=== PATIENT | female | born 1975 | race Caucasian/White ===

== ENCOUNTER 2020-07-16 10:45 | Outpatient (CLI) | payer MEDICAID, SELFPAY ==
--- NOTE | 2020-07-16 10:51 | MM_ITS ---
WS: [id number] BILATERAL SCREENING DIGITAL MAMMOGRAM WITH CAD HISTORY: SCREENING COMPARISON: 11/04/2011 Bilateral CC and MLO views submitted. Computer aided detection analyzed. Breast composition: There are scattered areas of fibroglandular density. No suspicious masses, microc alcifications or architectural distortion. MM/[id number] IMPRESSION: BI-RADS: 1-Negative FOLLOW UP: 1 Year Follow-up
== END 2020-07-16 10:46 | disposition home or self-care (01) ==
LOC: RADSHAW 10:50
PROVIDERS: PCP Nurse Practitioner Family; Visit Provider Nurse Practitioner Family
DX: Z12.31 Encounter for screening mammogram for malignant neoplasm of breast (principal)
CPT/HCPCS: 77067

== ENCOUNTER 2022-09-03 11:07 | Outpatient (CLI) | payer MEDICAID, SELFPAY ==
--- NOTE | 2022-09-03 12:06 | MM_ITS ---
WS: [id number] BILATERAL 3D TOMOSYNTHESIS DIGITAL SCREENING MAMMOGRAPHY WITH CAD CLINICAL INFORMATION: SCREENING HISTORY: Screening mammogram. No current complaints. COMPARISON: 2020 TECHNIQUE: Bilateral CC and MLO views. FINDINGS: Scattered fibroglandular densities bilaterally. No suspicious focal mass, asymmetry, calcifications, or architectural distortion. No evidence of malignancy. Lucent centered calcifications. MM/[id number] IMPRESSION: BI-RADS: 2-Benign FOLLOW UP: 1 Year Follow-up Recommend return to annual screening mammography.
== END 2022-09-03 11:08 | disposition home or self-care (01) ==
LOC: RAD 11:11 → MOBLMAM 11:18 → RAD 12:04
PROVIDERS: PCP Nurse Practitioner Family; Visit Provider Family Medicine
DX: Z12.31 Encounter for screening mammogram for malignant neoplasm of breast (principal)
CPT/HCPCS: 77063; 77067

== ENCOUNTER 2022-11-07 23:44 | Emergency (ER) | payer MEDICAID, SELFPAY ==
--- NOTE | 2022-11-07 23:47 | W.ED.FEMALGU ---
HPI - Female Genitourinary General: Chief complaint: Skin/Abscess/Foreign Body Stated complaint: possible UTI Time Seen by Provider: 11/07/22 23:47 History of Present Illness: Patient comes in with a persistent rash to the inguinal area. Patient has had multiple treatments for it think it continues to persist. Patient at this time is using nystatin powder and Diflucan for the treatment. Patient appears nontoxic. Patient appears no acute distress. Review of Systems General: Reports: 10 or more systems reviewed and unremarkable except in HPI and below Skin/Breast: Reports: non-healing lesions Physical Exam Const: COMMON NORMALS: alert HENMT: COMMON NORMALS: normocephalic HEAD & SCALP: normocephalic Neck/C-Spine: COMMON NORMALS: full ROM Resp: COMMON NORMALS: normal respiratory effort Cardio: COMMON NORMALS: regular rate RATE: regular rate : OTHER: DogNormal external female emanation. Patient does have some erythema and some cracking of the skin in the inguinal folds. Extremity: COMMON NORMALS: normal to inspection Neuro: SENSORIUM/ORIENTATION: Yes alert Skin: RASHES: rashes noted (Inguinal bilateral areas) Course Vital Signs: Vital signs: Vital Signs Temperature 98.8 F 11/08/22 00:31 Pulse Rate 95 11/08/22 00:31 Respiratory Rate 18 11/08/22 00:31 Blood Pressure 175/103 11/08/22 00:31 Pulse Oximetry 97 11/08/22 00:31 MDM - Female Medical Decision Making Patient appears nontoxic. Patient has some tenderness to the groin. On exam we note a erythematous rash with some maceration of the skin to the inguinal folds bilaterally. Differential diagnosis includes not limited to intertrigo, erythrasma, seborrheic dermatitis, eczema. Recommended patient switch from nystatin to clotrimazole. Instructed to clean with mild soap and water and dry thoroughly twice a day and then apply clotrimazole cream. Prescription for hydrocortisone with pramoxine cream to be used as needed for discomfort. Recommended patient continue with Diflucan as prescribed. Recommend follow-up with primary care in 1 week for recheck. Discussed possibility of patient needing referral to dermatology for further evaluation. Patient stated understanding and agreed to plan. No radiology studies performed this visit Discharge Plan Discharge Patient Disposition: Home Clinical Impression: Intertrigo Condition: Stable Prescriptions: New clotrimazole 1 % cream 1 applic topical BID 56 Days Qty: 30 2RF hydrocortisone-pramoxine 1-1 % cream 1 applic topical TID PRN (Reason: skin irritation) Qty: 57 0RF Rx Instructions: allow at least 3 hours between applications No Action hydrochlorothiazide 25 mg tablet 25 mg PO DAILY cetirizine [Zyrtec] 10 mg tablet 10 mg PO DAILY Qty: 30 0RF fluticasone propionate [Flonase Allergy Relief] 50 mcg/actuation spray,suspension 2 spray intranasal DAILY Qty: 16 0RF Rx Instructions: administer into each nostril dextromethorphan-guaifenesin 20-400 mg tablet 1 tab PO QID PRN (Reason: cough) Qty: 30 0RF Discharge Orders: Discharge ED (Routine); Ordered 11/08/22 Ordered By: Joe Cai Referrals: Kayley Campos FNP [Referring] - Discharge Diet: Usual diet Discharge Activity: Increase activity as tolerated Patient Instructions: Skin Yeast Infection (ED), Dermatitis (ED) Activity Restrictions/Additional Instructions: Clean area with mild soap and water. Dry area thoroughly with a language and literature division chair on a cool setting. Then apply clotrimazole cream. Do this twice a day. Try to keep yourself cool and dry as much as possible. Use the hydrocortisone?pramoxine cream as needed for skin irritation such as pain or itching. Do not use nystatin powder or other creams at this time. You may continue with your oral Diflucan as prescribed. Follow-up with primary care in 1 week. If symptoms have not improved at that time you may need to have a referral to dermatology. Coding Level of Care Code ED Corporate Safety Manager for Lisa Louis
[2022-11-07 23:51] VITALS: BP 175/103; PULSE 95; RESP 18; TEMP 37.1; O2SAT 97; BMI 47.5
[2022-11-08 00:31] VITALS: BP 175/103; PULSE 95; RESP 18; TEMP 37.1; O2SAT 97
== END 2022-11-08 00:31 | disposition home or self-care (01) ==
PROVIDERS: Emergency Provider Nurse Practitioner Family; PCP Family Medicine
DX: L30.4 Erythema intertrigo (principal)
CPT/HCPCS: 99283

== ENCOUNTER → 2023-06-27 08:43 | Outpatient (BNVA) | payer MEDICAID, SELFPAY | PROVIDERS: PCP Family Medicine; Visit Provider Nurse Practitioner Family | DX: L30.4 Erythema intertrigo (principal); L91.8 Other hypertrophic disorders of the skin; L85.8 Other specified epidermal thickening; L57.8 Other skin changes due to chronic exposure to nonionizing radiation | CPT/HCPCS: 17110; 99203 ==

== ENCOUNTER → 2023-07-25 13:51 | Outpatient (BNVA) | payer MEDICAID, SELFPAY | PROVIDERS: PCP Family Medicine; Visit Provider Nurse Practitioner Family | DX: L30.4 Erythema intertrigo (principal); L57.0 Actinic keratosis; L57.8 Other skin changes due to chronic exposure to nonionizing radiation; H02.60 Xanthelasma of unspecified eye, unspecified eyelid | CPT/HCPCS: 17000; 99214 ==

== ENCOUNTER 2024-05-20 20:51 | Emergency (ER) | payer MEDICAID, SELFPAY ==
[2024-05-20 21:03] VITALS: BMI 39.3
[2024-05-20 21:07] VITALS: BP 133/71; PULSE 71; RESP 18; TEMP 37.2; O2SAT 93
--- NOTE | 2024-05-20 23:40 | ECG_ITS ---
[facility] Date: 2024-05-20 Pat Name: Kelsey Zacarias Department: Room: Gender: Female Mailroom Coordinator: : 1975 Requested By: Anshu Mota Order Number: [id number] Mancuso MD: Leah Astudillo M.D. Measurements Intervals Jet Rate: 64 P: 149 TX: 126 QRS: 145 QRSD: 97 T: 151 QT: 385 QTc: 399 Interpretive Statements SINUS RHYTHM ARM LEADS REVERSED [INVERTED P AND QRS IN I] No previous ECG available for comparison Electronically Signed On 05-21-2024 21:40:11 CDT by Leah Astudillo M.D. [email or web address]
[2024-05-20 23:44] LABS: Basophils # 0.1 10^3/uL (0.0-0.1); Basophils % 0.5 %; Eosinophils # 0.3 10^3/uL (0.0-0.8); Eosinophils % 2.6 %; Hematocrit 45.1 % (36-47); Lymphocytes # 2.9 10^3/uL (0.8-4.8); Lymphocytes % 26.7 %; Mean Corpuscular HGB Conc 32.6 g/dL (30-55); Mean Corpuscular Volume 98.3 fl (85-98); Mean Platelet Volume 10.1 fL (7.4-10.4); Monocytes # 0.9 10^3/uL (0.2-0.9); Monocytes % 7.8 %; Neutrophils # 6.73 10^3/uL (1.8-7.7); Nucleated Red Blood Cells % 0 %; Platelet Count 240 10^3/cmm (157-399); Red Blood Count 4.59 10^6/uL (3.85-5.65); Red Cell Distribution Width 13.3 % (12.1-15.1); White Blood Count 10.84 10^3/uL (3.29-11.43)
[2024-05-20 23:52] VITALS: BP 132/54; BP 138/85; BP 148/79; PULSE 76; PULSE 83; PULSE 89
[2024-05-21 00:09] LABS: Alanine Aminotransferase 46 U/L (0-33); Alkaline Phosphatase 76 U/L (35-105); Anion Gap 12.5 (5-19); Aspartate Amino Transferase 24 U/L (0-32); Blood Urea Nitrogen 7 mg/dL (6-20); Calcium 10.1 mg/dL (8.5-10.5); Carbon Dioxide 29 mmol/L (22-29); Chloride 105 mmol/L (98-107); Creatinine Clr Calc Pharmacy 146.7712; Globulin 3.3 g/dL (1.3-4.6); Glomerular Filtration Rate 130.6 mL/min (90-130); Glucose 99 mg/dL (65-115); Osmolality Calculated 294 mOsm/kg (285-295); Potassium 3.5 mmol/L (3.5-5.1); Sodium 143 mmol/L (136-145); Total Bilirubin 0.3 mg/dL (0.15-1.2); Total Protein 7.3 g/dL (6.6-8.7)
--- NOTE | 2024-05-21 00:09 | W.ED.DIZZY ---
Documented by User: MARIE Luz 05/21/24 01:07 HPI - Dizziness General: Chief Complaint: Dizziness Stated Complaint: light head dizzy Time Seen by Provider: 05/20/24 21:15 Source: patient Mode of arrival: ambulatory Limitations: no limitations History of Present Illness: HPI Narrative: Patient is a 49-year-old female presenting to the emergency department complaining of dizziness onset today. States that she was cleaning her house and afterwards started to feel lightheaded and off balance that she was going to fall. States that she has the sense of vertigo and that the room was spinning. Also notes some nausea. No other symptoms noted at this time. Denies known history of vertigo and states that she has never tried taking meclizine or other aoms-eri-zxizllv medications. No injuries associated with her falls. Does not report any pertinent past medical history other than high blood pressure. No recent medication changes. MD elicited complaint: dizziness and disequilibrium Onset (ago): hour(s) Timing: sudden onset Severity: mild Description: off-balance History of similar symptoms: Yes Exacerbating factors: movement/ambulation Relieving factors: remaining still Associated symptoms: Reports nausea; Denies chest pain, chills, headache(s), palpitations or vomiting Associated neuro symptoms: Deny numbness in extremities Related Data Home Medications ?Medication ?Instructions ?Recorded ?Confirmed hydrochlorothiazide 25 mg tablet 25 mg PO DAILY 08/10/22 03/16/23 Previous Rx's ?Medication ?Instructions ?Recorded cetirizine 10 mg tablet (Zyrtec) 10 mg PO DAILY #30 tabs 08/10/22 fluticasone propionate 50 2 spray intranasal DAILY #16 grams 08/10/22 mcg/actuation nasal spray,suspension (Flonase Allergy Relief) clotrimazole 1 % topical cream 1 applic topical BID 8 weeks #30 02/17/23 grams fluconazole 150 mg tablet 150 mg PO Q3D #3 tabs 02/17/23 hydrocortisone 2.5 % topical 1 applic topical BID #453.6 grams 02/17/23 ointment nystatin 100,000 unit/gram topical 1 applic topical DAILY #60 grams 02/17/23 powder Allergies Allergy/AdvReac Type Severity Reaction Status Date / Time No Known Allergies Allergy Verified 03/16/23 09:58 Review of Systems General: Reports: 10 or more systems reviewed and unremarkable except in HPI and below Const: Denies: fever(s), chills or fatigue Eyes: Denies: change in vision ENMT: Denies: throat pain, ear or mastoid pain or nasal discharge Card: Denies: chest pain, palpitations, swelling of feet/ankles or lightheadedness Resp: Denies: dyspnea, productive cough or wheezing GI: Reports: nausea; Denies: abdominal pain, vomiting, diarrhea or constipation Musc: Denies: neck pain, back pain or joint pain Skin/Breast: Denies: rash Neuro: Reports: dizziness and vertigo; Denies: headache(s), numbness in extremities or weakness in extremities PFSH ED PFSH: Family History Denies family history of Ovarian cancer Diabetes Breast cancer Hypertension Uterine cancer Thyroid disease Stroke Female Reproductive History: Date of last menstrual period: 05/08/24 Physical Exam Const: COMMON NORMALS: no acute distress, patient oriented x3 and no limitations GENERAL APPEARANCE: cooperative, comfortable and well developed ORIENTATION/CONSCIOUSNESS: Yes awake, Yes oriented to person, Yes oriented to place and Yes oriented to time HENMT: COMMON NORMALS: normocephalic, atraumatic and hearing grossly normal bilaterally HEAD & SCALP: normocephalic and atraumatic Eye: COMMON NORMALS: Equal, round and reactive pupils present, EOMs intact bilaterally and conjunctivae normal CONJUNCTIVA: Yes conjunctivae normal PUPIL: Yes Equal, round and reactive pupils present Neck/C-Spine: COMMON NORMALS: full ROM, supple and no JVD Resp: COMMON NORMALS: normal respiratory effort, No retractions, No use of accessory muscles and clear to auscultation bilaterally AUSCULTATION: clear to auscultation bilaterally Cardio: COMMON NORMALS: no JVD, regular rate, regular rhythm, No clicks present (Cardio), No murmurs present (Cardio) and No rub (Cardio) RATE: regular rate RHYTHM: regular rhythm GI: COMMON NORMALS: Normal to inspection, nondistended, normoactive bowel sounds present, Soft to palpation and non-tender AUSCULTATION: Yes normoactive bowel sounds PALPATION: Yes Soft to palpation RECTAL EXAM: deferred Extremity: COMMON NORMALS: normal to inspection, full ROM and capillary refill normal Neuro: COMMON NORMALS: patient oriented x3, moves all extremities, no focal motor deficits and no sensory deficits noted SENSORIUM/ORIENTATION: Yes oriented to person, Yes oriented to place and Yes oriented to time Skin: COMMON NORMALS: no rashes or lesions noted GENERAL SKIN EXAM: no rashes or lesions noted Course Vital Signs: Vital signs: Vital Signs Temperature 98.9 F 05/20/24 21:07 Pulse Rate 76 05/20/24 23:52 Respiratory Rate 18 05/20/24 21:07 Blood Pressure 132/54 05/20/24 23:52 Pulse Oximetry 93 05/20/24 21:07 [facility] - Dizziness Medical Decision Making Patient presented for dizziness today, feeling like she was going to fall and room spinning sensation. History of blood pressure issues, states this has been controlled she has been taking her medications however does not regularly take her blood pressure. On exam there were no abnormalities, no neurological dysfunction. Vitals have been stable, orthostatic vital signs were unremarkable. Lab work was normal, urinalysis normal. EKG normal. Does report improvement after receiving meclizine here and I do suspect BPPV as source of her dizziness and nausea. Because of this we will have her take this vdlj-gny-jtdkfva and follow-up with regular doctor for any further complaints or issues. Lab Data 05/20/24 23:33 05/20/24 23:33 Laboratory Results WBC 10.84 10^3/uL (3.29-11.43) 05/20/24 23:33 RBC 4.59 10^6/uL (3.85-5.65) 05/20/24 23:33 Hgb 14.70 g/dL (11.27-16.99) 05/20/24 23:33 Hct 45.1 % (36-47) 05/20/24 23:33 MCV 98.3 fl (85-98) H 05/20/24 23:33 MCH 32.0 pg (27-33) 05/20/24 23: MCHC 32.6 g/dL (30-55) 05/20/24 23:33 RDW 13.3 % (12.1-15.1) 05/20/24 23:33 Plt Count 240 10^3/cmm (157-399) 05/20/24 23:33 MPV 10.1 fL (7.4-10.4) 05/20/24 23: Neut % (Auto) 62.0 % 05/20/24 23: Lymph % (Auto) 26.7 % 05/20/24 23: [place] % (Auto) 7.8 % 05/20/24 23: Eos % (Auto) 2.6 % 05/20/24 23: Baso % (Auto) 0.5 % 05/20/24 23: Neut # (Auto) 6.73 10^3/uL (1.8-7.7) 05/20/24 23: Lymph # (Auto) 2.9 10^3/uL (0.8-4.8) 05/20/24 23: [place] # (Auto) 0.9 10^3/uL (0.2-0.9) 05/20/24 23: Eos # (Auto) 0.3 10^3/uL (0.0-0.8) 05/20/24: Baso # (Auto) 0.1 10^3/uL (0.0-0.1) 05/20/24 23: Nucleated RBC % (auto) 0 % 05/20/24 23: Nucleated RBCs # 0.0 /100WBC 05/20/24 23:33 Sodium 143 mmol/L (136-145) 05/20/24 23: Potassium 3.5 mmol/L (3.5-5.1) 05/20/24 23: Chloride 105 mmol/L (98-107) 05/20/24 23: Carbon Dioxide 29 mmol/L (22-29) 05/20/24 23: Anion Gap 12.5 (5-19) 05/20/24 23:33 BUN 7 mg/dL (6-20) 05/20/24 23: Creatinine 0.5 mg/dL (0.5-0.9) 05/20/24 23: GFR Calculation 130.6 mL/min (90-130) H 05/20/24 23:33 Glucose 99 mg/dL (65-115) 05/20/24 23:33 Calculated Osmolality 294 mOsm/kg (285-295) 05/20/24 23: Calcium 10.1 mg/dL (8.5-10.5) 05/20/24 23:33 Total Bilirubin 0.3 mg/dL (0.15-1.2) 05/20/24 23:33 AST 24 U/L (0-32) 05/20/24 23:33 ALT 46 U/L (0-33) H 05/20/24 23:33 Alkaline Phosphatase 76 U/L (35-105) 05/20/24 23:33 Total Protein 7.3 g/dL (6.6-8.7) 05/20/24 23:33 Albumin 4.0 g/dL (3.5-5.2) 05/20/24 23:33 Globulin 3.3 g/dL (1.3-4.6) 05/20/24 23:33 Urine Color Yellow (Yellow) 05/21/24 00:20 Urine Appearance Cloudy (CLEAR) A 05/21/24 00:20 Urine pH 7 (5-7) 05/21/24 00:20 Ur Specific [place] 1.010 (1.005-1.030) 05/21/24 00:20 Urine Protein Neg (Negative) 05/21/24 00:20 Urine Glucose (UA) Norm (Normal) 05/21/24 00:20 Urine Ketones Negative (Negative) 05/21/24 00:20 Urine Blood Neg (Negative) 05/21/24 00:20 Urine Nitrate Negative (Negative) 05/21/24 00:20 Urine Bilirubin Neg (Negative) 05/21/24 00:20 Urine Urobilinogen Norm mg/dL (Negative) 05/21/24 00:20 Ur Leukocyte Esterase Negative (Negative) 05/21/24 00:20 Urine RBC 0-2 /hpf (0-2) 05/21/24 00:20 Urine WBC 0-5 /hpf (0-5) 05/21/24 00:20 Ur Squamous Epith Cells 0-5 /hpf (0-5) 05/21/24 00:20 Amorphous Sediment Not Reportable 05/21/24 00:20 Urine Bacteria None seen /hpf (NONE) 05/21/24 00:20 Hyaline Casts 0-4 /lpf H 05/21/24 00:20 No radiology studies performed this visit Discharge Plan Discharge Patient Disposition: Home Clinical Impression: Benign paroxysmal positional vertigo Qualifiers: Laterality: unspecified laterality Qualified Code(s): H81.10 - Benign paroxysmal vertigo, unspecified ear Condition: Stable Prescriptions: No Action hydrochlorothiazide 25 mg tablet 25 mg PO DAILY cetirizine [Zyrtec] 10 mg tablet 10 mg PO DAILY Qty: 30 0RF fluticasone propionate [Flonase Allergy Relief] 50 mcg/actuation spray,suspension 2 spray intranasal DAILY Qty: 16 0RF Rx Instructions: administer into each nostril clotrimazole 1 % cream 1 applic topical BID 56 Days Qty: 30 2RF hydrocortisone 2.5 % ointment 1 applic topical BID Qty: 453.6 1RF fluconazole 150 mg tablet 150 mg PO Q3D Qty: 3 0RF Rx Instructions: may repeat third dose 72 hrs after second dose if symptoms persist nystatin 100,000 unit/gram powder 1 applic topical DAILY Qty: 60 0RF Discharge Orders: Discharge ED (Routine); Ordered 05/21/24 Ordered By: Anshu Wheeler Referrals: Kaelyn Mota DO [Primary Care Provider] - Patient Instructions: Benign Paroxysmal Positional Vertigo (ED) Activity Restrictions/Additional Instructions: Drink plenty of fluids. Otcp-wii-mqmxxrs meclizine. Follow-up with your regular doctor and return with any new or worsening. Print Language: Cameroonian Coding Level of Care Code ED Linoleum Layer Apprentice for Chg Fwd Documented by User: Kasi Allen DO 05/21/24 01:22 HPI - Dizziness General: Chief Complaint: Dizziness Stated Complaint: light head dizzy Time Seen by Provider: 05/20/24 21:15 Related Data Home Medications ?Medication ?Instructions ?Recorded ?Confirmed hydrochlorothiazide 25 mg tablet 25 mg PO DAILY 08/10/22 03/16/23 Previous Rx's ?Medication ?Instructions ?Recorded cetirizine 10 mg tablet (Zyrtec) 10 mg PO DAILY #30 tabs 08/10/22 fluticasone propionate 50 2 spray intranasal DAILY #16 grams 08/10/22 mcg/actuation nasal spray,suspension (Flonase Allergy Relief) clotrimazole 1 % topical cream 1 applic topical BID 8 weeks #30 02/17/23 grams fluconazole 150 mg tablet 150 mg PO Q3D #3 tabs 02/17/23 hydrocortisone 2.5 % topical 1 applic topical BID #453.6 grams 02/17/23 ointment nystatin 100,000 unit/gram topical 1 applic topical DAILY #60 grams 02/17/23 powder Allergies Allergy/AdvReac Type Severity Reaction Status Date / Time No Known Allergies Allergy Verified 03/16/23 09:58 PFS ED PFSH: Family History Denies family history of Ovarian cancer Diabetes Breast cancer Hypertension Uterine cancer Thyroid disease Stroke Course Vital Signs: Vital signs: Vital Signs Temperature 98.9 F 05/20/24 21:07 Pulse Rate 76 05/20/24 23:52 Respiratory Rate 18 05/20/24 21:07 Blood Pressure 132/54 05/20/24 23:52 Pulse Oximetry 93 05/20/24 21:07 [facility] - Dizziness Medical Decision Making Patient presented for dizziness today, feeling like she was going to fall and room spinning sensation. History of blood pressure issues, states this has been controlled she has been taking her medications however does not regularly take her blood pressure. On exam there were no abnormalities, no neurological dysfunction. Vitals have been stable, orthostatic vital signs were unremarkable. Lab work was normal, urinalysis normal. EKG normal. Does report improvement after receiving meclizine here and I do suspect BPPV as source of her dizziness and nausea. Because of this we will have her take this nhin-aax-nqzvjpa and follow-up with regular doctor for any further complaints or issues. This patient was originally seen by Mr. Summer PA-C.? I agree with his history, evaluation, and treatment. Lab Data 05/20/24 23:33 05/20/24 23:33 Laboratory Results WBC 10.84 10^3/uL (3.29-11.43) 05/20/24 23:33 RBC 4.59 10^6/uL (3.85-5.65) 05/20/24 23:33 Hgb 14.70 g/dL (11.27-16.99) 05/20/24 23:33 Hct 45.1 % (36-47) 05/20/24: MCV 98.3 fl (85-98) H 05/20/24: MCH 32.0 pg (27-33) 05/20/24: MCHC 32.6 g/dL (30-55) 05/20/24: RDW 13.3 % (12.1-15.1) 05/20/24: Plt Count 240 10^3/cmm (157-399) 05/20/24: MPV 10.1 fL (7.4-10.4) 05/20/24: Neut % (Auto) 62.0 % 05/20/24: Lymph % (Auto) 26.7 % 05/20/24: [place] % (Auto) 7.8 % 05/20/24: Eos % (Auto) 2.6 % 05/20/24: Baso % (Auto) 0.5 % 05/20/24: Neut # (Auto) 6.73 10^3/uL (1.8-7.7) 05/20/24: Lymph # (Auto) 2.9 10^3/uL (0.8-4.8) 05/20/24: [place] # (Auto) 0.9 10^3/uL (0.2-0.9) 05/20/24: Eos # (Auto) 0.3 10^3/uL (0.0-0.8) 05/20/24: Baso # (Auto) 0.1 10^3/uL (0.0-0.1) 05/20/24: Nucleated RBC % (auto) 0 % 05/20/24: Nucleated RBCs # 0.0 /100WBC 05/20/24: Sodium 143 mmol/L (136-145) 05/20/24: Potassium 3.5 mmol/L (3.5-5.1) 05/20/24: Chloride 105 mmol/L (98-107) 05/20/24: Carbon Dioxide 29 mmol/L (22-29) 05/20/24 23: Anion Gap 12.5 (5-19) 05/20/24 23:33 BUN 7 mg/dL (6-20) 05/20/24 23:33 Creatinine 0.5 mg/dL (0.5-0.9) 05/20/24 23:33 GFR Calculation 130.6 mL/min (90-130) H 05/20/24 23:33 Glucose 99 mg/dL (65-115) 05/20/24 23:33 Calculated Osmolality 294 mOsm/kg (285-295) 05/20/24 23:33 Calcium 10.1 mg/dL (8.5-10.5) 05/20/24 23:33 Total Bilirubin 0.3 mg/dL (0.15-1.2) 05/20/24: AST 24 U/L (0-32) 05/20/24: ALT 46 U/L (0-33) H 05/20/24 23:33 Alkaline Phosphatase 76 U/L (35-105) 05/20/24 23:33 Total Protein 7.3 g/dL (6.6-8.7) 05/20/24: Albumin 4.0 g/dL (3.5-5.2) 05/20/24 23: Globulin 3.3 g/dL (1.3-4.6) 05/20/24 23:33 Urine Color Yellow (Yellow) 05/21/24 00:20 Urine Appearance Cloudy (CLEAR) A 05/21/24 00:20 Urine pH 7 (5-7) 05/21/24 00:20 Ur Specific [place] 1.010 (1.005-1.030) 05/21/24 00:20 Urine Protein Neg (Negative) 05/21/24 00:20 Urine Glucose (UA) Norm (Normal) 05/21/24 00:20 Urine Ketones Negative (Negative) 05/21/24 00:20 Urine Blood Neg (Negative) 05/21/24 00:20 Urine Nitrate Negative (Negative) 05/21/24 00:20 Urine Bilirubin Neg (Negative) 05/21/24 00:20 Urine Urobilinogen Norm mg/dL (Negative) 05/21/24 00:20 Ur Leukocyte Esterase Negative (Negative) 05/21/24 00:20 Urine RBC 0-2 /hpf (0-2) 05/21/24 00:20 Urine WBC 0-5 /hpf (0-5) 05/21/24 00:20 Ur Squamous Epith Cells 0-5 /hpf (0-5) 05/21/24 00:20 Amorphous Sediment Not Reportable 05/21/24 00:20 Urine Bacteria None seen /hpf (NONE) 05/21/24 00:20 Hyaline Casts 0-4 /lpf H 05/21/24 00:20 Discharge Plan Discharge Patient Disposition: Home Clinical Impression: Benign paroxysmal positional vertigo Qualifiers: Laterality: unspecified laterality Qualified Code(s): H81.10 - Benign paroxysmal vertigo, unspecified ear Condition: Stable Prescriptions: No Action hydrochlorothiazide 25 mg tablet 25 mg PO DAILY cetirizine [Zyrtec] 10 mg tablet 10 mg PO DAILY Qty: 30 0RF fluticasone propionate [Flonase Allergy Relief] 50 mcg/actuation spray,suspension 2 spray intranasal DAILY Qty: 16 0RF Rx Instructions: administer into each nostril clotrimazole 1 % cream 1 applic topical BID 56 Days Qty: 30 2RF hydrocortisone 2.5 % ointment 1 applic topical BID Qty: 453.6 1RF fluconazole 150 mg tablet 150 mg PO Q3D Qty: 3 0RF Rx Instructions: may repeat third dose 72 hrs after second dose if symptoms persist nystatin 100,000 unit/gram powder 1 applic topical DAILY Qty: 60 0RF Discharge Orders: Discharge ED (Routine); Ordered 05/21/24 Ordered By: Anshu Wheeler Referrals: Kaelyn Mota DO [Primary Care Provider] - Patient Instructions: Benign Paroxysmal Positional Vertigo (ED) Activity Restrictions/Additional Instructions: Drink plenty of fluids. Qxvv-lep-wzhvknp meclizine. Follow-up with your regular doctor and return with any new or worsening. Print Language: Cameroonian Coding Level of Care Code ED Linoleum Layer Apprentice for Lisa Louis
[2024-05-21] MEDS: meclizine 25 mg tablet 50 MG PO (00:11)
[2024-05-21 00:35] LABS: Add Urine Microscopic? YES; Bacteria Urine None Seen /hpf; Bilirubin Urine Neg (Negative); Blood Urine Neg (Negative); Glucose Urine UA Norm (Normal); Hyaline Casts Urine 0-4 /lpf; Ketones Urine Negative (Negative); Leukocyte Esterase Urine Negative (Negative); Nitrate Urine Negative (Negative); Protein Urine Neg (Negative); RBC Urine 0-2 /hpf (0-2); Squamous Epithelial Cell Urine 0-5 /hpf (0-5); Urine Appearance Cloudy (CLEAR); Urine Color Yellow (Yellow); Urobilinogen Urine Norm (Negative); WBC Urine 0-5 /hpf (0-5); pH Urine 7 (5-7)
== END 2024-05-21 00:53 | disposition home or self-care (01) ==
PROVIDERS: Emergency Provider Physician Assistant; PCP Family Medicine
DX: H81.10 Benign paroxysmal vertigo, unspecified ear (principal)
CPT/HCPCS: 36415; 80053; 81001; 85025; 93005; 99284; J8597

== ENCOUNTER 2024-08-04 00:05 | Emergency (ER) | payer MEDICAID, SELFPAY ==
[2024-08-04 00:11] VITALS: BP 156/68; PULSE 80; RESP 18; TEMP 36.3; O2SAT 97; BMI 51.2
--- OUTSIDE RECORDS SUMMARY | 2024-08-04 00:12 | XMS_ITS | Encounter Summary ---
Author Organization [employer] [facility] Address [address] [place] [address] Care Team Providers Care Mixer Wet Pour Name Role Phone Unavailable Primary Care Provider Unavailabl e Encounter Details Date Type Department Care Team (Latest Contact Info) Description 03/21/2001 Outpatient Historical [facility] John Paul Bullock MD [address] [place] [id number] OBESITY NOS (Primary Dx) Social History Tobacco Use Types Packs/Day Years Used Date Smoking Tobacco: Never Assessed Comments Unknown Sex and Gender Information Value Date Recorded Sex Assigned at Not on file Legal Sex Female 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
--- OUTSIDE RECORDS SUMMARY | 2024-08-04 00:12 | XMS_ITS | Encounter Summary ---
Author Organization [employer] [facility] Address [address] [place] [address] Care Team Providers Care Quality Assurance Lead Name Role Phone Unavailable Primary Care Provider Unavailabl e Encounter Details Date Type Department Care Team (Latest Contact Info) Description 05/29/2001 Outpatient Historical [facility] John Paul Bullock MD [address] [place] [id number] OBESITY NOS (Primary Dx) Social History Tobacco Use Types Packs/Day Years Used Date Smoking Tobacco: Never Assessed Comments Unknown Sex and Gender Information Value Date Recorded Sex Assigned at Not on file Legal Sex Female 3:31 AM BIZTALK SOFTWARE DEVELOPER Gender Identity Not on file Sexual Orientation Not on file documented as of this encounter Plan of Treatment Not on file documented as of this encounter Visit Diagnoses Diagnosis Obesity, unspecified- Primary documented in this encounter
--- OUTSIDE RECORDS SUMMARY | 2024-08-04 00:12 | XMS_ITS | Encounter Summary ---
Author Organization [employer] [facility] Address [address] [place] [address] Care Team Providers Care Ict Help Desk Officer Name Role Phone Unavailable Primary Care Provider Unavailabl e Encounter Details Date Type Department Care Team (Latest Contact Info) Description 03/11/2000 Outpatient Historical HIS [facility] John Paul Bullock MD [address] [place] [phone] Carbuncle of trunk (Primary Dx) Social History Tobacco Use Types Packs/Day Years Used Date Smoking Tobacco: Never Assessed Comments Unknown Sex and Gender Information Value Date Recorded Sex Assigned at Not on file 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
--- OUTSIDE RECORDS SUMMARY | 2024-08-04 00:13 | XMS_ITS | Encounter Summary ---
Author Organization [employer] [facility] Address [address] [place] [address] Care Team Providers Care Flagman Name Role Phone Unavailable Primary Care Provider Unavailabl e Encounter Details Date Type Department Care Team (Latest Contact Info) Description 02/02/2001 Outpatient Historical HIS [facility] John Paul Bullock MD [address] [place] [phone] NONINFEC GASTROENTERIT NEC (Primary Dx); OBESITY NOS Social History Tobacco Use Types Packs/Day Years Used Date Smoking Tobacco: Never Assessed Comments Unknown Sex and Gender Information Value Date Recorded Sex Assigned at Not on file 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
--- OUTSIDE RECORDS SUMMARY | 2024-08-04 00:13 | XMS_ITS | Encounter Summary ---
Author Organization [employer] [facility] Address [address] [place] [address] Care Team Providers Care Bakery Worker Name Role Phone Unavailable Primary Care Provider Unavailabl e Encounter Details Date Type Department Care Team (Latest Contact Info) Description 10/26/2000 Outpatient Historical HIS [facility] Amador, Hay Ly MD [address] [facility] [address] [place] [phone] Acute cholecystitis (Primary Dx); Dyspepsia and other specified disorders of function of stomach; Lump or mass in breast Social History Tobacco Use Types Packs/Day Years Used Date Smoking Tobacco: Never Assessed Comments Unknown Sex and Gender Information Value Date Recorded Sex Assigned at Not on file 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
--- OUTSIDE RECORDS SUMMARY | 2024-08-04 00:13 | XMS_ITS | Encounter Summary ---
Author Organization [employer] [facility] Address [address] [place] [address] Care Team Providers Care Thread Tool Grinder Set Up Operator Name Role Phone Unavailable Primary Care Provider Unavailabl e Encounter Details Date Type Department Care Team (Latest Contact Info) Description 09/26/2000 Outpatient Historical HIS [facility] John Paul Bullock MD [address] [place] [phone] Calculus of gallbladder without mention of cholecystitis or obstruction (Primary Dx); Solitary cyst of breast Social History Tobacco Use Types Packs/Day Years Used Date Smoking Tobacco: Never Assessed Comments Unknown Sex and Gender Information Value Date Recorded Sex Assigned at Not on file 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
--- OUTSIDE RECORDS SUMMARY | 2024-08-04 00:13 | XMS_ITS | Encounter Summary ---
Author Organization [employer] [facility] Address [address] [facility] Attn: Epic Prelude [place] [address] Care Team Providers Care Auxiliary Engineer Name Role Phone Unavailable Primary Care Provider Unavailabl e Encounter Details Date Type Department Care Team (Late st Contact Info) Description 05/03/2000 Outpatient Historical John Paul Bullock MD [address] [place] [phone] Social History Tobacco Use Types Packs/Day Years Used Date Smoking Tobacco: Never Assessed Comments Unknown Sex and Gender Information Value Date Recorded Sex Assigned at Not on file 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
--- OUTSIDE RECORDS SUMMARY | 2024-08-04 00:13 | XMS_ITS | Encounter Summary ---
Author Organization [facility] [facility] Address [address] [place] [address] Care Team Providers Care Torpedo Specialist Name Role Phone Unavailable Primary Care Provider Unavailabl e Encounter Details Date Type Department Care Team (Latest Contact Info) Description 05/03/2000 Outpatient Historical HIS [facility] John Paul Bullock MD [address] [place] [phone] Urinary tract infection, site not specified (Primary Dx) Social History Tobacco Use Types Packs/Day Years Used Date Smoking Tobacco: Never Assessed Comments Unknown Sex and Gender Information Value Date Recorded Sex Assigned at Not on file 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
--- OUTSIDE RECORDS SUMMARY | 2024-08-04 00:13 | XMS_ITS | Encounter Summary ---
Author Organization [employer] [facility] Address [address] [place] [address] Care Team Providers Care Manufacturing Specialist Name Role Phone Unavailable Primary Care Provider Unavailabl e Encounter Details Date Type Department Care Team (Latest Contact Info) Description 11/29/2000 Outpatient Historical HIS [facility] John Paul Bullock MD [address] [place] [phone] Unspecified urinary incontinence (Primary Dx); Retention of urine, unspecified; Abdominal pain, unspecified site; Obesity, unspecified Social History Tobacco Use Types Packs/Day Years Used Date Smoking Tobacco: Never Assessed Comments Unknown Sex and Gender Information Value Date Recorded Sex Assigned at Not on file 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
--- OUTSIDE RECORDS SUMMARY | 2024-08-04 00:13 | XMS_ITS | Encounter Summary ---
Author Organization [facility] Address [address] [place] [address] Care Team Providers Care Photographic Double Name Role Phone Unavailable Primary Care Provider Unavailabl e Encounter Details Date Type Department Care Team (Latest Contact Info) Description 12/03/1997 Outpatient Historical [facility] Oral and Maxillo Surgery[address] [place] [address] Claude Cross, FLOS NO ADDRESS ON FILE Dental caries (Primary Dx); Unspecified disorder of the teeth and supporting structures; Periapical abscess; Chronic periodontitis Social History Tobacco Use Types Packs/Day Years Used Date Smoking Tobacco: Never Assessed Comments Unknown Sex and Gender Information Value Date Recorded Sex Assigned at Not on file 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
--- OUTSIDE RECORDS SUMMARY | 2024-08-04 00:13 | XMS_ITS | Encounter Summary ---
Author Organization [facility] [employer] [facility] Address [address] [place] [address] Care Team Providers Care Product Inspection Coordinator Name Role Phone Unavailable Primary Care Provider Unavailabl e Encounter Details Date Type Department Care Team (Latest Contact Info) Description 01/25/2001 Outpatient Historical HIS [facility] Israel Dubois MD [address] [place] [address] HYPOVOLEMIA (Primary Dx); UNSPEC CONSTIPATION Social History Tobacco Use Types Packs/Day Years Used Date Smoking Tobacco: Never Assessed Comments Unknown Sex and Gender Information Value Date Recorded Sex Assigned at Not on file 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
--- OUTSIDE RECORDS SUMMARY | 2024-08-04 00:13 | XMS_ITS | Encounter Summary ---
Author Organization [facility] Address [address] [place] [address] Care Team Providers Care Data Steward Name Role Phone Unavailable Primary Care Provider Unavailabl e Encounter Details Date Type Department Care Team (Latest Contact Info) Description 05/27/2000 Outpatient Historical [facility] Urology- [address] [place] [address] Carlos Eduardo Caro MD NO ADDRESS ON FILE Urinary tract infection, site not specified (Primary Dx) Social History Tobacco Use Types Packs/Day Years Used Date Smoking Tobacco: Never Assessed Comments Unknown Sex and Gender Information Value Date Recorded Sex Assigned at Not on file 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
--- OUTSIDE RECORDS SUMMARY | 2024-08-04 00:13 | XMS_ITS | Encounter Summary ---
Author Organization [employer] [facility] Address [address] [place] [address] Care Team Providers Care Utility Division Project Manager Name Role Phone Unavailable Primary Care Provider Unavailabl e Encounter Details Date Type Department Care Team (Latest Contact Info) Description 04/19/2000 Outpatient Historical HIS [facility] John Paul Bullock MD [address] [place] [phone] Pain in limb (Primary Dx); Urinary obstruction Social History Tobacco Use Types Packs/Day Years Used Date Smoking Tobacco: Never Assessed Comments Unknown Sex and Gender Information Value Date Recorded Sex Assigned at Not on file 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
--- OUTSIDE RECORDS SUMMARY | 2024-08-04 00:13 | XMS_ITS | Clinical Summary ---
Author Organization [facility] Address [address] [facility] [address] [place] [address] Phone Care Team Providers Care Wardrobe Supervisor Name Role Phone Unavailable Primary Care Provider Unavailabl e Medications fluconazole (DIFLUCAN) 150 mg tablet Take 1 Tablet (150 mg) by mouth every 7 days. 4 Tablet 01/06/2022 Active ketoconazole (NIZORAL) 2 % Cream Apply once daily after gentle washing and drying of the rash area. 30 Gram 01/06/2022 Active hydrocortisone (HYTONE) 2.5 % Cream After gentle washing and thorough drying of the affected area apply once daily for a week then every other day for one week. 20 Gram 01/06/2022 Active Social History Tobacco Use Types Packs/Day Years Used Date Smoking Tobacco: Every Day Cigarettes Smokeless Tobacco: Never Tobacco Cessation:Ready to Q uit: Not Asked; Counseling Given: Not Answered Alcohol Use Standard Drinks/Week Comments Never 0 (1 standard drink = 0.6 oz pur e alcohol) Comments Unknown Sex and Gender Information Value Date Recorded Sex Assigned at Not on file Legal Sex Female 5:04 PM DIRECTOR CASE Gender Identity Not on file Sexual Orientation Not on file Last Filed Vital Signs Vital Sign Reading Time Taken Comments Blood Pressure 115/81 01/06/2022 10:00 PM DIRECTOR CASE Pulse 80 01/06/2022 10:00 PM DIRECTOR CASE Temperature 36.7 C (98.1 F) 01/06/2022 8:32 PM DIRECTOR CASE Respiratory Rate 18 01/06/2022 10:00 PM DIRECTOR CASE Oxygen Saturation 98% 01/06/2022 10:00 PM DIRECTOR CASE Inhaled Oxygen Concentration - - Weight 99.9 kg (220 lb 3.2 oz) 01/06/2022 8:32 P M DIRECTOR CASE Height 157.5 cm (5' 2 ) 01/06/2022 8:32 PM DIRECTOR CASE Body Mass Index 40.28 01/06/2022 8:32 PM DIRECTOR CASE Plan of Treatment Health Maintenance Due Date Last Done Comments DTAP/TDAP/TD VACCINES (1 - Tdap) 1993 HEPATITIS B VACCINES (1 of 3 - 19+ 3-dose series) 04/1993 HPV/Cotest (21-29) 04/10/1995 CERVICAL CANCER SCREENING 2004 HPV/Cotest (30-65) 2004 PAP SMEAR 2004 BREAST CANCER SCREENING 2014 COLORECTAL SCREENING 04/10/2019 Colorectal Cancer Screening 04/10/2019 FIT-DNA Q 3 years 04/10/2019 FIT/FOBT Q 1 year 04/10/2019 Flex Sig/CT Colonography Q 5 years 04/10/2019 INFLUENZA VACCINE (#1) 2023 ZOSTER VACCINE (1 of 2) [address] [place] [address] [place]
--- OUTSIDE RECORDS SUMMARY | 2024-08-04 00:13 | XMS_ITS | Encounter Summary ---
Author Organization [facility] Address [address] [place] [address] Care Team Providers Care Shank Breaker Name Role Phone Unavailable Primary Care Provider Unavailabl e Encounter Details Date Type Department Care Team (Latest Contact Info) Description 01/13/1998 Outpatient Historical [facility] Oral and Maxillo Surgery- [address] [place] [phone] Calude Cross, ANDREW NO ADDRESS ON FILE Periapical abscess (Primary Dx); Unspecified disorder of the teeth and supporting structures; Dental caries; Dental arch anomaly Social History Tobacco Use Types Packs/Day Years Used Date Smoking Tobacco: Never Assessed Comments Unknown Sex and Gender Information Value Date Recorded Sex Assigned at Not on file 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
--- OUTSIDE RECORDS SUMMARY | 2024-08-04 00:13 | XMS_ITS | Clinical Summary ---
Author Organization [employer] Address [address] [facility] [address] 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
[2024-08-04 03:08] VITALS: BP 155/95; PULSE 69; O2SAT 95
[2024-08-04] MEDS: fluconazole 100 mg Tablet 150 MG PO (04:12)
[2024-08-04 05:11] VITALS: BP 142/90; PULSE 69; O2SAT 96
--- NOTE | 2024-08-04 06:50 | W.ED.SKABFB ---
HPI - Skin/Abscess/Foreign Bdy General: Chief complaint: Skin/Abscess/Foreign Body Stated complaint: Boil on back of neck it hurts Time Seen by Provider: 08/04/24 02:54 History of Present Illness: Patient presents with a progressively enlarging lesion on the neck, initially thought to be a pimple by her previous provider, who recommended warm compresses. Despite this, the lesion has increased in size and now appears to be an abscess with purulent drainage. Patient reports attempting to express pus herself, with some yellow discharge noted. She denies prior similar episodes. Additionally, patient reports itching and inflammation in the genital area, suggestive of a possible yeast infection. She has not started metformin despite being told she is close to having diabetes. She is unsure of her blood sugar status and has not checked it. Patient also mentions having worn a heart monitor recently but is unaware of the results. No other symptoms or complaints were discussed. lesion is located on right upper back just below the neck Related Data Home Medications ?Medication ?Instructions ?Recorded ?Confirmed hydrochlorothiazide 25 mg tablet 25 mg PO DAILY 08/10/22 03/16/23 Previous Rx's ?Medication ?Instructions ?Recorded cetirizine 10 mg tablet (Zyrtec) 10 mg PO DAILY #30 tabs 08/10/22 fluticasone propionate 50 2 spray intranasal DAILY #16 grams 08/10/22 mcg/actuation nasal spray,suspension (Flonase Allergy Relief) clotrimazole 1 % topical cream 1 applic topical BID 8 weeks #30 02/17/23 grams fluconazole 150 mg tablet 150 mg PO Q3D #3 tabs 02/17/23 hydrocortisone 2.5 % topical 1 applic topical BID #453.6 grams 02/17/23 ointment nystatin 100,000 unit/gram topical 1 applic topical DAILY #60 grams 02/17/23 powder doxycycline hyclate 100 mg capsule 100 mg PO BID 5 days #10 caps 08/04/24 fluconazole 150 mg tablet 150 mg PO DAILY 1 dose #1 tab 08/04/24 Allergies Allergy/AdvReac Type Severity Reaction Status Date / Time No Known Allergies Allergy Verified 03/16/23 09:58 PFSH ED PFSH: Family History Denies family history of Ovarian cancer Diabetes Breast cancer Hypertension Uterine cancer Thyroid disease Stroke Physical Exam Const: COMMON NORMALS: no acute distress, patient oriented x3 and alert HENMT: COMMON NORMALS: normocephalic and atraumatic HEAD & SCALP: normocephalic and atraumatic Eye: COMMON NORMALS: Equal, round and reactive pupils present, EOMs intact bilaterally and no scleral icterus PUPIL: Yes Equal, round and reactive pupils present Resp: COMMON NORMALS: normal respiratory effort and No retractions Cardio: COMMON NORMALS: regular rate, regular rhythm and No murmurs present (Cardio) RATE: regular rate RHYTHM: regular rhythm GI: COMMON NORMALS: Normal to inspection, nondistended, normoactive bowel sounds present, Soft to palpation and non-tender PALPATION: Yes Soft to palpation Neuro: COMMON NORMALS: patient oriented x3 SENSORIUM/ORIENTATION: Yes alert Skin: OTHER: 3 cm diameter raised, red, tender area at the level of T1 overlying the right paraspinal musculature. There is very mild surrounding erythema as well. Procedures Abscess I/D Site: back Side (if applicable): right Sedation/analgesia: none Local Anesthetic: lidocaine 1% and with epi Amount of anesthesia used (mL): 3 Technique: incised with #11 blade Amount of fluid expressed (mL): 14.634 Irrigation: Yes Packing used?: none Course Vital Signs: Vital signs: Vital Signs Temperature 97.4 F L 08/04/24 00:11 Pulse Rate 69 08/04/24 05:11 Respiratory Rate 18 08/04/24 00:11 Blood Pressure 142/90 08/04/24 05:11 Pulse Oximetry 96 08/04/24 05:11 Oxygen Delivery Me thod Room Air 08/04/24 03:08 MDM - Skin/Abscess/Foreign Bdy Medicial Decision Making Lesion on back was anesthetized and incised and drained and irrigated. There is a definite superimposed abscess on what appears to be simple cyst which patient states has been there for a long time, at least 6 months. I advised the patient that she likely needs to have the cyst removed or else the infection can recur and abscess can recur. She will be given a course of antibiotics and case management referral was placed to either general surgery or dermatology whoever can treat this most expeditiously. She shows good understanding and agrees to the plan. No radiology studies performed this visit Discharge Plan Discharge Patient Disposition: Home Clinical Impression: Infected cyst of skin, Yeast dermatitis Condition: Stable Prescriptions: New doxycycline hyclate 100 mg capsule 100 mg PO BID 5 Days Qty: 10 0RF fluconazole 150 mg tablet 150 mg PO DAILY Qty: 1 0RF Rx Instructions: administer on day 1 of therapy No Action hydrochlorothiazide 25 mg tablet 25 mg PO DAILY cetirizine [Zyrtec] 10 mg tablet 10 mg PO DAILY Qty: 30 0RF fluticasone propionate [Flonase Allergy Relief] 50 mcg/actuation spray,suspension 2 spray intranasal DAILY Qty: 16 0RF Rx Instructions: administer into each nostril clotrimazole 1 % cream 1 applic topical BID 56 Days Qty: 30 2RF hydrocortisone 2.5 % ointment 1 applic topical BID Qty: 453.6 1RF fluconazole 150 mg tablet 150 mg PO Q3D Qty: 3 0RF Rx Instructions: may repeat third dose 72 hrs after second dose if symptoms persist nystatin 100,000 unit/gram powder 1 applic topical DAILY Qty: 60 0RF Discharge Orders: Discharge ED (Routine); Ordered 08/04/24 Ordered By: John Paul Gonzalez Referrals: Kaelyn Mota DO [Primary Care Provider, SPEECH PATHOLOGIST] Discharge Diet: Usual diet Discharge Activity: Increase activity as tolerated Patient Instructions: Dermal Cyst Excision (DC), Abscess (ED), Patient Portal & Aren Instructions Activity Restrictions/Additional Instructions: Case management was consulted to get you referred to either surgeon or a time clock inspector who can remove the cyst on her back. The cyst became infected and that is why it was more painful and red. Copious purulence was expressed after we incised it. Abscess can return so it is best to have this cyst removed so that it does not come back. Print Language: Korean Coding Level of Care Code ED Speech Lang Path Therapist for Lisa Louis
--- NOTE | 2024-08-06 07:06 | DCPLANNER ---
messaged dermatology for er f/u
== END 2024-08-04 05:17 | disposition home or self-care (01) ==
PROVIDERS: Emergency Provider Student in an Organized Health Care Education/Training Program; PCP Family Medicine
DX: L72.8 Other follicular cysts of the skin and subcutaneous tissue (principal); L30.8 Other specified dermatitis
CPT/HCPCS: 99283; J9999

== ENCOUNTER → 2024-08-14 10:02 | Outpatient (BNVA) | payer MEDICAID, SELFPAY | PROVIDERS: PCP Family Medicine; Visit Provider Nurse Practitioner Family | DX: L72.0 Epidermal cyst (principal) | CPT/HCPCS: 99214 ==

== ENCOUNTER → 2024-10-02 12:38 | Outpatient (BNVA) | payer MEDICAID, SELFPAY | PROVIDERS: PCP Family Medicine; Visit Provider Dermatology | DX: L72.0 Epidermal cyst (principal); L57.3 Poikiloderma of Civatte | CPT/HCPCS: 99213 ==

== ENCOUNTER 2024-11-01 13:04 | Emergency (ER) | payer MEDICAID, SELFPAY ==
[2024-11-01 13:07] VITALS: BP 131/97; PULSE 83; RESP 16; TEMP 36.4; O2SAT 93
--- NOTE | 2024-11-01 13:11 | CT_ITS ---
WS: [id number] CT HEAD TECHNIQUE: Noncontrast CT of the head obtained from the skullbase to the vertex. CLINICAL INFORMATION: vertigo, fall, head injury COMPARISON: None. DLP: 1058.[address] scans at [facility] use at least one of these dose optimization techniques: automated exposure control; mA and/or kV adjustment per patient size (includes targeted exams where dose is matched to clinical indication); or iterative reconstruction. FINDINGS: No evidence of intracranial hemorrhage or mass effect. Ventricular system and basal cisterns are patent. No extra-axial fluid collections. No evidence of mass or mass effect. Normal kay-white differentiation. Paranasal sinuses and mastoid air cells are well aerated. .Normal visualized soft tissues. CT/CT head wo con* [id number] IMPRESSION: 1. No evidence of intracranial hemorrhage or mass effect. 2. No acute intracranial findings.
--- NOTE | 2024-11-01 13:21 | W.ED.DIZZY ---
HPI - Dizziness General: Chief Complaint: Dizziness Stated Complaint: dizzy / fall Time Seen by Provider: 11/01/24 13:06 History of Present Illness: HPI Narrative: 49-year-old female who presents emergency room with symptoms of vertigo. She says its gotten so bad she has fallen a couple times. She hit her head at 1 point. Said worse when she lays down. No headache. No altered mental status. No focal motor deficits. Currently symptoms are minimal. This is worse when she gazes to the left. No nystagmus. Related Data Home Medications ?Medication ?Instructions ?Recorded ?Confirmed cetirizine 10 mg tablet (Zyrtec) 10 mg PO DAILY PRN allergies 11/01/24 11/01/24 fluticasone propionate 50 2 spray intranasal DAILY PRN 11/01/24 11/01/24 mcg/actuation nasal Allergic Symptoms spray,suspension (Flonase Allergy Relief) hydrochlorothiazide 12.5 mg tablet 12.5 mg PO DAILY 11/01/24 11/01/24 Previous Rx's ?Medication ?Instructions ?Recorded lorazepam 1 mg tablet (Ativan) 1 mg PO BID PRN dizziness or 11/01/24 vertigo #20 tabs meclizine 25 mg tablet 25 mg PO QID PRN dizziness #20 tabs 11/01/24 Allergies Allergy/AdvReac Type Severity Reaction Status Date / Time No Known Allergies Allergy Verified 03/16/23 09:58 Review of Systems Narrative: Constitutional symptoms: Negative except as documented in HPI. Skin symptoms: Negative except as documented in HPI. Eye symptoms: Negative except as documented in HPI. ENMT symptoms: Negative except as documented in HPI. Respiratory symptoms: Negative except as documented in HPI. Cardiovascular symptoms: Negative except as documented in HPI. Gastrointestinal symptoms: Negative except as documented in HPI. Genitourinary symptoms: Negative except as documented in HPI. Musculoskeletal symptoms: Negative except as documented in HPI. Neurologic symptoms: Negative except as documented in HPI. Psychiatric symptoms: Negative except as documented in HPI. Endocrine symptoms: Negative except as documented in HPI. PFSH ED PFSH: Family History Denies family history of Ovarian cancer Diabetes Breast cancer Hypertension Uterine cancer Thyroid disease Stroke Social History Smoking and tobacco/nicotine status: current every day tobacco/nicotine user Physical Exam Narrative: EXAM NARRATIVE: General: Alert, no acute distress. Skin: Warm, dry. Head: Normocephalic, atraumatic. Neck: Supple, trachea midline. Eye: Extraocular movements are intact. Ears, nose, mouth and throat: mucosa moist. Cardiovascular: Regular, Normal peripheral perfusion. Respiratory: Lungs are clear to auscultation, respirations are non-labored, breath sounds are equal, Symmetrical chest wall expansion. Gastrointestinal: Soft, Nontender, Non distended Musculoskeletal: Normal ROM, no deformity. Neurological: Alert and oriented, No focal neurological deficit observed. Psychiatric: Cooperative, appropriate mood & affect. Course Vital Signs: Vital signs: Vital Signs Temperature 97.6 F 11/01/24 13:07 Pulse Rate 83 11/01/24 13:07 Respiratory Rate 16 11/01/24 13:07 Blood Pressure 131/97 11/01/24 13:07 Pulse Oximetry 93 11/01/24 13:07 Oxygen Delivery Me thod Room Air 11/01/24 13:07 MDM - Dizziness Medical Decision Making Medical decision making: Differential diagnosis including but not limited to and based on the above HPI, review of systems and physical exam: for patient with complaint of dizziness: stroke, hypotension, hypertension, infection, vertigo, orthostasis Orders placed to evaluate differential diagnosis based on the above differential, HPI and physical exam. This patient seems to clearly have benign positional vertigo. However with the trauma that she had in small potential that this could be central vertigo I am going to do a head CT. I reviewed the patient's medical record. CT head: No acute intracranial process. no intracranial hemorrhage, no evidence of infarct. no evidence of acute fracture.This was reviewed and interpreted by myself the ER physician. Reexamination: Patient remained stable. No increased work of breathing. No altered mental status. No focal motor deficits. Assessment and plan: Vertigo - Discharged home - Discussed plan with patient. Answered any questions. - Evaluation and treatment of this problem were appropriate in the emergency setting. Lab Data Radiology Impressions Head CT 11/01/24 13:11 IMPRESSION: 1. No evidence of intracranial hemorrhage or mass effect. 2. No acute intracranial findings. All radiology interpretation(s) finalized by discharge Discharge Plan Discharge Patient Disposition: Home Clinical Impression: BPV (benign positional vertigo) Condition: Stable Prescriptions: New lorazepam [Ativan] 1 mg tablet 1 mg PO BID PRN (Reason: dizziness or vertigo) Qty: 20 0RF Rx Instructions: Use only if vertigo is severe. No driving with this medication meclizine 25 mg tablet 25 mg PO QID PRN (Reason: dizziness) Qty: 20 0RF No Action hydrochlorothiazide 12.5 mg tablet 12.5 mg PO DAILY cetirizine [Zyrtec] 10 mg tablet 10 mg PO DAILY PRN (Reason: allergies) fluticasone propionate [Flonase Allergy Relief] 50 mcg/actuation spray,suspension 2 spray intranasal DAILY PRN (Reason: Allergic Symptoms) Rx Instructions: administer into each nostril Discharge Orders: Discharge ED (Routine); Ordered 11/01/24 Ordered By: Leticia Hernandez Referrals: Kaelyn Mota DO [Primary Care Provider, KILN SETTER] Patient Instructions: Opioid Safety, Pain Management, Patient Portal & Aren Instructions Print Language: Comoran Coding Level of Care Code ED Management Lecturer for Lisa Louis
[2024-11-01 14:17] VITALS: BP 127/69; PULSE 66; O2SAT 90
--- OUTSIDE RECORDS SUMMARY | 2024-11-01 15:11 | XMS_ITS | Encounter Summary ---
Author Organization [employer] [facility] Address [address] [place] [address] Care Team Providers Care Box Sealing Machine Operator Name Role Phone Unavailable Primary Care Provider Unavailabl e Encounter Details Date Type Department Care Team (Latest Contact Info) Description 03/11/2000 Outpatient Historical HIS [facility] John Paul Bullock MD [address] [place] [phone] Carbuncle of trunk (Primary Dx) Social History Tobacco Use Types Packs/Day Years Used Date Smoking Tobacco: Never Assessed Comments Unknown Sex and Gender Information Value Date Recorded Sex Assigned at Not on file 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
--- OUTSIDE RECORDS SUMMARY | 2024-11-01 15:11 | XMS_ITS | Encounter Summary ---
Author Organization [employer] [facility] Address [address] [place] [address] Care Team Providers Care Agency Sales Management Assistant Name Role Phone Unavailable Primary Care Provider Unavailabl e Encounter Details Date Type Department Care Team (Latest Contact Info) Description 03/21/2001 Outpatient Historical HIS [facility] John Paul Bullock MD [address] [place] [phone] OBESITY NOS (Primary Dx) Social History Tobacco Use Types Packs/Day Years Used Date Smoking Tobacco: Never Assessed Comments Unknown Sex and Gender Information Value Date Recorded Sex Assigned at Not on file Legal Sex Female 3:31 AM DRAWING TENDER Gender Identity Not on file Sexual Orientation Not on file documented as of this encounter Plan of Treatment Not on file documented as of this encounter Visit Diagnoses Diagnosis Obesity, unspecified- Primary documented in this encounter
--- OUTSIDE RECORDS SUMMARY | 2024-11-01 15:11 | XMS_ITS | Encounter Summary ---
Author Organization [employer] [facility] Address [address] [place] [address] Care Team Providers Care Honey Grader And Blender Name Role Phone Unavailable Primary Care Provider Unavailabl e Encounter Details Date Type Department Care Team (Latest Contact Info) Description 04/19/2000 Outpatient Historical HIS [facility] John Paul Bullock MD [address] [place] [phone] Pain in limb (Primary Dx); Urinary obstruction Social History Tobacco Use Types Packs/Day Years Used Date Smoking Tobacco: Never Assessed Comments Unknown Sex and Gender Information Value Date Recorded Sex Assigned at Not on file 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
--- OUTSIDE RECORDS SUMMARY | 2024-11-01 15:11 | XMS_ITS | Encounter Summary ---
Author Organization [employer] 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
--- OUTSIDE RECORDS SUMMARY | 2024-11-01 15:12 | XMS_ITS | Encounter Summary ---
Author Organization [employer] [facility] Address [address] [facility] Attn: [place] [address] Care Team Providers Care Ink Jet Operator Name Role Phone Unavailable Primary Care Provider Unavailabl e Encounter Details Date Type Department Care Team (Late st Contact Info) Description 05/03/2000 Outpatient Historical John Paul Bullock MD [address] [place] [phone] Social History Tobacco Use Types Packs/Day Years Used Date Smoking Tobacco: Never Assessed Comments Unknown Sex and Gender Information Value Date Recorded Sex Assigned at Not on file Legal Sex Female 3:31 AM MECHANICAL ESTIMATOR Gender Identity Not on file Sexual Orientation Not on file documented as of this encounter Plan of Treatment Not on file documented as of this encounter Visit Diagnoses Not on filedocumented in this encounter
--- OUTSIDE RECORDS SUMMARY | 2024-11-01 15:12 | XMS_ITS | Encounter Summary ---
Author Organization [employer] [facility] Address [address] [place] [address] Care Team Providers Care Tin Whiz Machine Operator Name Role Phone Unavailable Primary Care Provider Unavailabl e Encounter Details Date Type Department Care Team (Latest Contact Info) Description 09/26/2000 Outpatient Historical HIS [facility] John Paul Bullock MD [address] [place] [phone] Calculus of gallbladder without mention of cholecystitis or obstruction (Primary Dx); Solitary cyst of breast Social History Tobacco Use Types Packs/Day Years Used Date Smoking Tobacco: Never Assessed Comments Unknown Sex and Gender Information Value Date Recorded Sex Assigned at Not on file Legal Sex Female 3:31 AM FISH PEDDLER Gender Identity Not on file Sexual Orientation Not on file documented as of this encounter Plan of Treatment Not on file documented as of this encounter Visit Diagnoses Diagnosis Calculus of gallbladder without mention of cholecystitis or obstruction- Primary Solitary cyst of breast documented in this encounter
--- OUTSIDE RECORDS SUMMARY | 2024-11-01 15:12 | XMS_ITS | Encounter Summary ---
Author Organization [employer] [facility] Address [address] [place] [address] Care Team Providers Care Investment Consultant Name Role Phone Unavailable Primary Care Provider Unavailabl e Encounter Details Date Type Department Care Team (Latest Contact Info) Description 10/26/2000 Outpatient Historical HIS [facility] Amador, Hay Ly MD [address] [facility] [address] [place] [phone] Acute cholecystitis (Primary Dx); Dyspepsia and other specified disorders of function of stomach; Lump or mass in breast Social History Tobacco Use Types Packs/Day Years Used Date Smoking Tobacco: Never Assessed Comments Unknown Sex and Gender Information Value Date Recorded Sex Assigned at Not on file Legal Sex Female 3:31 AM PROCUREMENT BUYER Gender Identity Not on file Sexual Orientation Not on file documented as of this encounter Plan of Treatment Not on file documented as of this encounter Visit Diagnoses Diagnosis Acute cholecystitis- Primary Dyspepsia and other specified disorders of function of stomach Lump or mass in breast documented in this encounter
--- OUTSIDE RECORDS SUMMARY | 2024-11-01 15:12 | XMS_ITS | Encounter Summary ---
Author Organization [employer] [facility] Address [address] [place] [address] Care Team Providers Care Secretary Book Keeper Name Role Phone Unavailable Primary Care Provider Unavailabl e Encounter Details Date Type Department Care Team (Latest Contact Info) Description 05/03/2000 Outpatient Historical HIS [facility] John Paul Bullock MD [address] [place] [phone] Urinary tract infection, site not specified (Primary Dx) Social History Tobacco Use Types Packs/Day Years Used Date Smoking Tobacco: Never Assessed Comments Unknown Sex and Gender Information Value Date Recorded Sex Assigned at Not on file Legal Sex Female 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
--- OUTSIDE RECORDS SUMMARY | 2024-11-01 15:12 | XMS_ITS | Clinical Summary ---
Author Organization [facility] Address [address] [facility] [address] [place] [address] Phone Care Team Providers Care Cushion Gum Applicator Name Role Phone Unavailable Primary Care Provider [...] on file Legal Sex Female 5:04 PM FOSTER PARENT Gender Identity Not on file Sexual Orientation Not on file Last Filed Vital Signs Vital Sign Reading Time Taken Comments Blood Pressure 115/81 01/06/2022 10:00 PM FOSTER PARENT Pulse 80 01/06/2022 10:00 PM FOSTER PARENT Temperature 36.7 C (98.1 F) 01/06/2022 8:32 PM FOSTER PARENT Respiratory Rate 18 01/06/2022 10:00 PM FOSTER PARENT Oxygen Saturation 98% 01/06/2022 10:00 PM FOSTER PARENT Inhaled Oxygen Concentration - - Weight 99.9 kg (220 lb 3.2 oz) 01/06/2022 8:32 P M FOSTER PARENT Height 157.5 cm (5' 2 ) 01/06/2022 8:32 PM FOSTER PARENT Body Mass Index 40.28 01/06/2022 8:32 PM FOSTER PARENT Plan of Treatment Health Maintenance Due Date [...] Flex Sig/CT Colonography Q 5 years 04/10/2019 ZOSTER VACCINE (1 of 2) 2024 INFLUENZA VACCINE (#1) [address] [place] [address] MEDICAID [place]
--- OUTSIDE RECORDS SUMMARY | 2024-11-01 15:12 | XMS_ITS | Encounter Summary ---
Author Organization [facility] Address [address] [place] [address] Care Team Providers Care Manager Dialysis Name Role Phone Unavailable Primary Care Provider Unavailabl e Encounter Details Date Type Department Care Team (Latest Contact Info) Description 05/27/2000 Outpatient Historical [facility]- [address], 3[address] [place] [address] Carlos Eduardo Caro MD NO ADDRESS ON FILE Urinary tract infection, site not specified (Primary Dx) Social History Tobacco Use Types Packs/Day Years Used Date Smoking Tobacco: Never Assessed Comments Unknown Sex and Gender Information Value Date Recorded Sex Assigned at Not on file Legal Sex Female 3:31 AM CLOTH BLEACHING RANGE BACK TENDER Gender Identity Not on file Sexual Orientation Not on file documented as of this encounter Plan of Treatment Not on file documented as of this encounter Visit Diagnoses Diagnosis Urinary tract infection, site not specified- Primary documented in this encounter
--- OUTSIDE RECORDS SUMMARY | 2024-11-01 15:12 | XMS_ITS | Encounter Summary ---
Author Organization [employer] [facility] Address [address] [place] [address] Care Team Providers Care Corporate Securities Research Analyst Name Role Phone Unavailable Primary Care Provider Unavailabl e Encounter Details Date Type Department Care Team (Latest Contact Info) Description 11/29/2000 Outpatient Historical HIS [facility] John Paul Bullock MD [address] [place] [phone] Unspecified urinary incontinence (Primary Dx); Retention of urine, unspecified; Abdominal pain, unspecified site; Obesity, unspecified Social History Tobacco Use Types Packs/Day Years Used Date Smoking Tobacco: Never Assessed Comments Unknown Sex and Gender Information Value Date Recorded Sex Assigned at Not on file 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
--- OUTSIDE RECORDS SUMMARY | 2024-11-01 15:12 | XMS_ITS | Clinical Summary ---
Author Organization [employer] Address [address] [facility] [address] Mcdanieln: [place] [address] Care Team Providers Care Manager Policy Name Role Phone Unavailable Primary Care Provider Unavailabl e Social History Tobacco Use Types Packs/Day Years Used Date Smoking Tobacco: Never Assessed Comments Unknown Sex and Gender Information Value Date Recorded Sex Assigned at Not on file Legal Sex Female 3:31 AM SECURITY AND COMPLIANCE PROJECT MANAGER Gender Identity Not on file Sexual Orientation [...]
--- OUTSIDE RECORDS SUMMARY | 2024-11-01 15:13 | XMS_ITS | Encounter Summary ---
Author Organization [facility] Address [address] [place] [address] Care Team Providers Care Gas Inspector Name Role Phone Unavailable Primary Care Provider Unavailabl e Encounter Details Date Type Department Care Team (Latest Contact Info) Description 12/03/1997 Outpatient Historical [facility] [place] [address] Claude Cross, FLOS NO ADDRESS ON FILE Dental caries (Primary Dx); Unspecified disorder of the teeth and supporting structures; Periapical abscess; Chronic periodontitis Social History Tobacco Use Types Packs/Day Years Used Date Smoking Tobacco: Never Assessed Comments Unknown Sex and Gender Information Value Date Recorded Sex Assigned at Not on file Legal Sex Female 3:31 AM COMMUNICATION ELECTRONIC TECHNICIAN Gender Identity Not on file Sexual Orientation Not on file documented as of this encounter Plan of Treatment Not on file documented as of this encounter Visit Diagnoses Diagnosis Dental caries- Primary Unspecified disorder of the teeth and supporting structures Periapical abscess Periapical abscess without sinus Chronic periodontitis documented in this encounter
--- OUTSIDE RECORDS SUMMARY | 2024-11-01 15:13 | XMS_ITS | Encounter Summary ---
Author Organization [employer] [facility] Address [address] [place] [address] Care Team Providers Care Financial Reporting Analyst Name Role Phone Unavailable Primary Care Provider Unavailabl e Encounter Details Date Type Department Care Team (Latest Contact Info) Description 01/25/2001 Outpatient Historical HIS [facility] Israel Dubois MD [address] [place] [address] HYPOVOLEMIA (Primary Dx); UNSPEC CONSTIPATION Social History Tobacco Use Types Packs/Day Years Used Date Smoking Tobacco: Never Assessed Comments Unknown Sex and Gender Information Value Date Recorded Sex Assigned at Not on file Legal Sex Female 3:31 AM SPLICING MACHINE OPERATOR Gender Identity Not on file Sexual Orientation Not on file documented as of this encounter Plan of Treatment Not on file documented as of this encounter Visit Diagnoses Diagnosis Volume depletion- Primary Unspecified constipation documented in this encounter
--- OUTSIDE RECORDS SUMMARY | 2024-11-01 15:13 | XMS_ITS | Encounter Summary ---
Author Organization [employer] [facility] Address [address] [place] [address] Care Team Providers Care Lehr Loader Name Role Phone Unavailable Primary Care Provider Unavailabl e Encounter Details Date Type Department Care Team (Latest Contact Info) Description 02/02/2001 Outpatient Historical HIS [facility] John Paul Bullock MD [address] [place] [phone] NONINFEC GASTROENTERIT NEC (Primary Dx); OBESITY NOS Social History Tobacco Use Types Packs/Day Years Used Date Smoking Tobacco: Never Assessed Comments Unknown Sex and Gender Information Value Date Recorded Sex Assigned at Not on file Legal Sex Female 3:31 AM IN STORE BANKER Gender Identity Not on file Sexual Orientation Not on file documented as of this encounter Plan of Treatment Not on file documented as of this encounter Visit Diagnoses Diagnosis Other and unspecified noninfectious gastroenteritis and colitis(558.9)- Primary Other and unspecified noninfectious gastroenteritis and colitis Obesity, unspecified documented in this encounter
--- OUTSIDE RECORDS SUMMARY | 2024-11-01 15:13 | XMS_ITS | Encounter Summary ---
Author Organization [facility] Address [address] [place] [address] Care Team Providers Care Letterer Name Role Phone Unavailable Primary Care Provider Unavailabl e Encounter Details Date Type Department Care Team (Latest Contact Info) Description 01/13/1998 Outpatient Historical [facility]- [address] [place] [phone] Claude Cross, ANDREW NO ADDRESS ON FILE Periapical abscess (Primary Dx); Unspecified disorder of the teeth and supporting structures; Dental caries; Dental arch anomaly Social History Tobacco Use Types Packs/Day Years Used Date Smoking Tobacco: Never Assessed Comments Unknown Sex and Gender Information Value Date Recorded Sex Assigned at Not on file Legal Sex Female 3:31 AM MEDICAL REVIEW SPECIALIST Gender Identity Not on file Sexual Orientation [...]
== END 2024-11-01 14:18 | disposition home or self-care (01) ==
PROVIDERS: Emergency Provider Emergency Medicine; PCP Family Medicine
DX: H81.10 Benign paroxysmal vertigo, unspecified ear (principal); Z72.0 Tobacco use
CPT/HCPCS: 70450; 99284

== ENCOUNTER 2024-11-16 20:34 | Emergency (ER) | payer MEDICAID, SELFPAY ==
[2024-11-16 20:39] VITALS: BP 147/74; PULSE 83; RESP 18; TEMP 36.5; O2SAT 98; BMI 42.6
[2024-11-16 21:42] LABS: Hematocrit 45.4 % (36-47); Hemoglobin 15.20 g/dL (11.27-16.99); Mean Corpuscular HGB Conc 33.5 g/dL (30-55); Mean Corpuscular Hemoglobin 32.1 pg (27-33); Mean Corpuscular Volume 95.8 fl (85-98); Nucleated Red Blood Cells % 0 %; Platelet Count 255 10^3/cmm (157-399); Red Blood Count 4.74 10^6/uL (3.85-5.65); White Blood Count 10.88 10^3/uL (3.29-11.43)
[2024-11-16 21:46] LABS: Add Urine Microscopic? NO
[2024-11-16 21:47] VITALS: BP 136/81; PULSE 80; RESP 17; O2SAT 97
--- NOTE | 2024-11-16 22:19 | CTR_ITS ---
PROCEDURE INFORMATION: Exam: CTA Head With Contrast, Arteriography Exam date and time: 11/16/2024 10:51 PM Age: 49 years old Clinical indication: Dizziness and giddiness; Additional info: Worsening dizziness/lightheaded. Recent normal plain head CT TECHNIQUE: Imaging protocol: Computed tomographic angiography of the head with contrast. Exam focused on the arteries. 3D rendering (Not supervised by radiologist): MIP and/or 3D reconstructed images were created by the technologist. Radiation optimization: All CT scans at this facility use at least one of these dose optimization techniques: automated exposure control; mA and/or kV adjustment per patient size (includes targeted exams where dose is matched to clinical indication); or iterative reconstruction. Contrast material: OMNIPAQUE 350; Contrast volume: 100 ml; Contrast route: INTRAVENOUS (IV); COMPARISON: CT head wo con* [id number] 11/01/2024 1:21 PM RADIATION DOSE METRICS: Total DLP (mGy-cm): 494.3 FINDINGS: ANTERIOR CIRCULATION: Right internal carotid artery: Intracranial segment is patent with no significant stenosis. No aneurysm. Right middle cerebral artery: No occlusion or significant stenosis. No aneurysm. Right anterior cerebral artery: No occlusion or significant stenosis. No aneurysm. Left internal carotid artery: Intracranial segment is patent with no significant stenosis. No aneurysm. Left middle cerebral artery: No occlusion or significant stenosis. No aneurysm. Left anterior cerebral artery: No occlusion or significant stenosis. No aneurysm. POSTERIOR CIRCULATION: Right vertebral artery: No occlusion or significant stenosis. No aneurysm. Left vertebral artery: No occlusion or significant stenosis. No aneurysm. Basilar artery: No occlusion or significant stenosis. No aneurysm. Right posterior cerebral artery: No occlusion or significant stenosis. No aneurysm. Left posterior cerebral artery: No occlusion or significant stenosis. No aneurysm. Brain: No definite mass, mass effect, or midline shift. Cerebral ventricles: No ventriculomegaly. Bones/joints: Unremarkable. No acute fracture. Soft tissues: Unremarkable. PROCEDURE INFORMATION: Exam: CTA Neck With Contrast Exam date and time: 11/16/2024 10:51 PM Age: 49 years old Clinical indication: Dizziness and giddiness; Additional info: Worsening dizziness/lightheaded. Recent normal plain head CT TECHNIQUE: Imaging protocol: Computed tomographic angiography of the neck with contrast. Exam focused on the cervical segments of the vasculature. 3D rendering (Not supervised by radiologist): MIP and/or 3D reconstructed images were created by the technologist. Radiation optimization: All CT scans at this facility use at least one of these dose optimization techniques: automated exposure control; mA and/or kV adjustment per patient size (includes targeted exams where dose is matched to clinical indication); or iterative reconstruction. Contrast material: OMNIPAQUE 350; Contrast volume: 100 ml; Contrast route: INTRAVENOUS (IV); COMPARISON: CT head wo con* [id number] 11/01/2024 1:21 PM RADIATION DOSE METRICS: Total DLP (mGy-cm): 494.3 FINDINGS: Right common carotid artery: No stenosis. No dissection or occlusion. Right internal carotid artery: No stenosis of the extracranial segment. No dissection or occlusion. Right external carotid artery: No occlusion or stenosis of the origin. Left common carotid artery: No stenosis. No dissection or occlusion. Left internal carotid artery: No stenosis of the extracranial segment. No dissection or occlusion. Left external carotid artery: No occlusion or stenosis of the origin. Right vertebral artery: No stenosis. No dissection or occlusion. Left vertebral artery: No stenosis. No dissection or occlusion. Soft tissues: Normal. No significant soft tissue swelling. Bones/joints: No acute fracture. CT/CT angio headneck* [id number] IMPRESSION: 1. No large vessel stenosis or occlusion. 2. No acute intracranial abnormality. No hemorrhage, mass effect or extra-axial collection. IMPRESSION: 1. No stenosis or occlusion. 2. No acute vascular abnormality. REFERENCES: NASCET CRITERIA. The degree of stenosis in the cervical segment of the internal carotid artery is based on NASCET criteria. Normal is no stenosis. Mild is less than 50% stenosis. Moderate is 50-69% stenosis. Severe is 70% to 99% stenosis. Total occlusion is no detectable patent lumen.
--- NOTE | 2024-11-16 22:25 | ECG_ITS ---
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
[2024-11-16 22:26] LABS: Alanine Aminotransferase 39 U/L (0-33); Albumin Level 4.1 g/dL (3.5-5.2); Alkaline Phosphatase 71 U/L (35-105); Anion Gap 14.6 (5-19); Aspartate Amino Transferase 26 U/L (0-32); Blood Urea Nitrogen 8 mg/dL (6-20); Calcium 9.7 mg/dL (8.5-10.5); Carbon Dioxide 27 mmol/L (22-29); Chloride 103 mmol/L (98-107); Creatinine Clr Calc Pharmacy 153.7115; Globulin 3.6 g/dL (1.3-4.6); Glucose 143 mg/dL (65-115); Osmolality Calculated 293 mOsm/kg (285-295); Potassium 3.6 mmol/L (3.5-5.1); Sodium 141 mmol/L (136-145); Total Protein 7.7 g/dL (6.6-8.7)
[2024-11-16 22:40] VITALS: BP 148/85; PULSE 70; O2SAT 97
--- NOTE | 2024-11-16 22:43 | CTR_ITS ---
PROCEDURE INFORMATION: Exam: CT Head Without Contrast Exam date and time: 11/16/2024 10:51 PM Age: 49 years old Clinical indication: Dizziness; Additional info: Worsening dizziness/lightheaded TECHNIQUE: Imaging protocol: Computed tomography of the head without contrast. Radiation optimization: All CT scans at this facility use at least one of these dose optimization techniques: automated exposure control; mA and/or kV adjustment per patient size (includes targeted exams where dose is matched to clinical indication); or iterative reconstruction. COMPARISON: CT head wo con* [id number] 11/01/2024 1:21 PM RADIATION DOSE METRICS: Total DLP (mGy-cm): 1097.5 FINDINGS: Brain: Basal cisterns are patent. No hemorrhage, mass effect or extra-axial collection. Castano-white matter differentiation is well-preserved. Cerebral ventricles: No ventriculomegaly. Paranasal sinuses: Visualized sinuses are unremarkable. No fluid levels. Mastoid air cells: Visualized mastoid air cells are well aerated. Bones: Unremarkable. No acute fracture. Soft tissues: Unremarkable. CT/CT head wo con* [id number] IMPRESSION: No acute intracranial abnormality.
[2024-11-16 22:50] VITALS: BP 134/87; BP 147/98; BP 154/90; PULSE 72; PULSE 75; PULSE 88
[2024-11-16 22:53] LABS: Glucose Urine UA Negative (Normal); Nitrate Urine Negative (Negative); Specific Gravity, Urine 1.017 (1.005-1.030)
[2024-11-16] MEDS: iohexol 350 mg/mL 500 mL Btl (per mL) IV (22:55)
[2024-11-16 23:47] LABS: Thyroid Stimulating Hormone 0.78 uIU/mL (0.27-4.20)
[2024-11-16 23:48] VITALS: BP 142/71; PULSE 74; O2SAT 95
[2024-11-17 00:14] LABS: Charge for UA Resulting for Rev
--- NOTE | 2024-11-17 00:37 | ED_ITS ---
Documented by User: MARIE Luz 11/17/24 00:41 HPI - Headache 2 General: Chief Complaint: Headache Stated Complaint: Dizziness,drooling, headache,Stroke symptoms Time Seen by Provider: 11/16/24 21:22 Source: patient Mode of arrival: ambulatory Limitations: no limitations History of Present Illness: Patient is a 49-year-old female who presents to the emergency department complaining of dizziness and a headache, also stating she is having strokelike symptoms. She was seen here in the emergency department on 11/01 for the same symptoms, had CT head at that time which was negative and discharged with Ativan and meclizine for her dizziness as she was diagnosed with BPPV. She states that her dizziness has persisted since, but is more of a lightheadedness. She also states that she is set to have her eyes checked. 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 However denies any facial droop, no visual changes or tearing. She is further denying any chest pain, shortness of breath, nausea or vomiting, syncope, head trauma, or difficulty walking. Her vitals are stable at this time. MD elicited complaint: other (Headache/dizziness/lightheadedness) Onset (ago): week(s) Associated symptoms: Reports lightheadedness; Deny chest pain, confusion, fever(s), nausea, rash or vomiting Related Data Home Medications ?Medication ?Instructions ?Recorded ?Confirmed cetirizine 10 mg tablet (Zyrtec) 10 mg PO DAILY PRN al lergies 11/01/24 11/01/24 fluticasone propionate 50 2 spray intranasal DAILY PRN 11/01/24 11/01/24 mcg/actuation nasal Allergic Symptoms spray,suspension (Flonase Allergy Relief) hydrochlorothiazide 12.5 mg tablet 12.5 mg PO DAILY 11/01/24 Previous Rx's ?Medication ?Instructions ?Recorded lorazepam 1 mg tablet (Ativan) 1 mg PO BID PRN dizzine ss or 11/01/24 vertigo #20 tabs meclizine 25 mg tablet 25 mg PO QID PRN dizziness # 20 tabs 11/01/24 Allergies Allergy/AdvReac Type Severity Reaction Status Date / Time No Known Allergies Allergy Verified 11/16/24 20:42 Review of Systems 2 General: Reports: 10 or more systems reviewed and unremarkable except in HPI and below Const: Denies: fever(s), chills or fatigue Eyes: Denies: change in vision ENMT: Reports: other (Reports of drooling); Denies: throat pain, ear or mastoid pain or nasal discharge Card: Reports: lightheadedness; Denies: chest pain, palpitations or swelling of feet/ankles Resp: Denies: dyspnea, productive cough or wheezing GI: Denies: abdominal pain, nausea, vomiting, diarrhea or constipation : Denies: flank pain, difficulty voiding, dysuria or urinary frequency Musc: Denies: neck pain, back pain or joint pain Skin/Breast: Denies: rash Neuro: Reports: headache(s) and dizziness; Denies: numbness in extremities, weakness in extremities, lack of coordination, difficulty walking, frequent falls, confusion, behavioral changes, Slurred speech present, difficulty communicating thoughts, seizure-like activity or involuntary movements PFSH ED 2 PFSH: Family History Denies family history of Ovarian cancer Diabetes Breast cancer Hypertension Uterine cancer Thyroid disease Stroke Social History Smoking and tobacco/nicotine status: current every day tobacco/nicotine user Physical Exam 2 Const: COMMON NORMALS: no acute distress, patient oriented x3 and no limitations GENERAL APPEARANCE: cooperative, comfortable and well developed ORIENTATION/CONSCIOUSNESS: Yes awake, Yes oriented to person, Yes oriented to place and Yes oriented to time OTHER: Nontoxic-appearing, no focal neurologic deficit HENMT: COMMON NORMALS: normocephalic, atraumatic and hearing grossly normal bilaterally HEAD & SCALP: normocephalic and atraumatic Eye: COMMON NORMALS: Equal, round and reactive pupils present, EOMs intact bilaterally and conjunctivae normal CONJUNCTIVA: Yes conjunctivae normal P UPIL: Yes Equal, round and reactive pupils present Neck/C-Spine: COMMON NORMALS: full ROM, supple and no JVD Resp: COMMON NORMALS: normal respiratory effort, No retractions, No use of accessory muscles and clear to auscultation bilaterally AUSCULTATION: clear to auscultation bilaterally Cardio: COMMON NORMALS: no JVD, regular rate, regular rhythm, No clicks present (Cardio), No murmurs present (Cardio) and No rub (Cardio) RATE: r egular rate RHYTHM: regular rhythm Extremity: COMMON NORMALS: normal to inspection, full ROM and capillary refill normal Neuro: COMMON NORMALS: patient oriented x3, CN's II-XII intact bilaterally, moves all extremities, no focal motor deficits and no sensory deficits noted SENSORIUM/ORIENTATION: Yes oriented to person, Yes oriented to place and Yes oriented to time COORDINATION/BALANCE: [id number] test normal and helm-dn-kqam test normal SPEECH: speech normal GAIT: Yes Normal gait present MOTOR EXAM: 5/5 motor strength present throughout, Pronator motor function not present, no tremor noted, no asterixis, Motor fasciculations not present, Normal motor muscle tone present throughout and Motor abnormalities not present COORDINATION: [id number] test normal and xqhg-cf-buui test normal OTHER: NIH of 0 Psych: COMMON NORMALS: mental status grossly normal and Normal thought process present THOUGHT PROCESS: Normal thought process present Skin: COMMON NORMALS: no rashes or lesions noted GENERAL SKIN EXAM: no rashes or lesions noted Course 2 Vital Signs: Vital signs: Vital Signs Temperature 97.7 F 11/16/24 20:39 Pulse Rate 73 11/17/24 00:48 Respiratory Rate 17 11/16/24 21:47 Blood Pressure 117/73 11/17/24 00:48 Pulse Oximetry 95 11/17/24 00:48 Oxygen Delivery Me thod Room Air 11/16/24 23:48 MDM - Headache Medical Decision Making Patient presented complaining of persistent lightheadedness and dizziness, had been seen here previously in the emergency department where she had head imaging performed showing no acute findings and was diagnosed with BPPV. States that this has not gotten better, she has no focal neurological deficit at this time as well and NIH of 0. Neurologically intact, CTA at this time does not show any stenosis or occlusion. EKG does not show any arrhythmias or cardiac explanation for dizziness. Lab work repeated and unremarkable, thyroid normal. She has remained stable here in the ED, she will be referred to neurology though I suspect that there is an element of incorrect eyeglass prescription that she is to follow-up with optometry for. Regardless she is stable for discharge and will continue her Ativan and meclizine. Lab Data 11/16/24 21:27 11/16/24 21: Radiology Impressions Head/Neck CTA 11/16/24 22:19 IMPRESSION: 1. No large vessel stenosis or occlusion. 2. No acute intracranial abnormality. No hemorrhage, mass effect or extra-axial collection. IMPRESSION: 1. No stenosis or occlusion. 2. No acute vascular abnormality. REFERENCES: NASCET CRITERIA. The degree of stenosis in the cervical segment of the internal carotid artery is based on NASCET criteria. Normal is no stenosis. Mild is less than 50% stenosis. Moderate is 50-69% stenosis. Severe is 70% to 99% stenosis. Total occlusion is no detectable patent lumen. Head CT 11/16/24 22:43 IMPRESSION: No acute intracranial abnormality. Laboratory Results WBC 10.88 10^3/uL (3.29-11.43) 11/16/24: RBC 4.74 10^6/uL (3.85-5.65) 11/16/24 21: Hgb 15.20 g/dL (11.27-16.99) 11/16/24: Hct 45.4 % (36-47) 11/16/24: MCV 95.8 fl (85-98) 11/16/24 21: MCH 32.1 pg (27-33) 11/16/24: MCHC 33.5 g/dL (30-55) 11/16/24: RDW 12.4 % (12.1-15.1) 11/16/24: Plt Count 255 10^3/cmm (157-399) 11/16/24: MPV 10.5 fL (7.4-10.4) H 11/16/24: Neut % (Auto) 66.2 % 11/16/24: Lymph % (Auto) 23.8 % 11/16/24: [place] % (Auto) 6.3 % 11/16/24: Eos % (Auto) 2.9 % 11/16/24: Baso % (Auto) 0.4 % 10/10/25 21:27 Neut # (Auto) 7.21 10^3/uL (1.8-7.7) 11/16/24 21: Lymph # (Auto) 2.6 10^3/uL (0.8-4.8) 11/16/24 21:27 [place] # (Auto) 0.7 10^3/uL (0.2-0.9) 11/16/24 21:27 Eos # (Auto) 0.3 10^3/uL (0.0-0.8) 11/16/24 21: Baso # (Auto) 0.0 10^3/uL (0.0-0.1) 11/16/24: Nucleated RBC % (auto) 0 % 11/16/24: Nucleated RBCs # 0.0 /100WBC 11/16/24 21: Sodium 141 mmol/L (136-145) 11/16/24 21: Potassium 3.6 mmol/L (3.5-5.1) 11/16/24 21: Chloride 103 mmol/L (98-107) 11/16/24 21: Carbon Dioxide 27 mmol/L (22-29) 11/16/24 21: Anion Gap 14.6 (5-19) 11/16/24 21:27 BUN 8 mg/dL (6-20) 11/16/24 21: Creatinine 0.5 mg/dL (0.5-0.9) 11/16/24 21:27 GFR Calculation 130.6 mL/min (90-130) H 11/16/24 21:27 Glucose 143 mg/dL (65-115) H 11/16/24 21:27 Calculated Osmolality 293 mOsm/kg (285-295) 11/16/24 21: Calcium 9.7 mg/dL (8.5-10.5) 11/16/24: Total Bilirubin 0.3 mg/dL (0.15-1.2) 11/16/24 21: AST 26 U/L (0-32) 11/16/24 21:27 ALT 39 U/L (0-33) H 11/16/24 21:27 Alkaline Phosphatase 71 U/L (35-105) 11/16/24 21: Total Protein 7.7 g/dL (6.6-8.7) 11/16/24 21: Albumin 4.1 g/dL (3.5-5.2) 11/16/24 21: Globulin 3.6 g/dL (1.3-4.6) 11/16/24 21: TSH 0.78 uIU/mL (0.27-4.20) 11/16/24 21:27 Urine Color Yellow (Yellow) 11/16/24 21:34 Urine Appearance Clear (CLEAR) 11/16/24 21:34 Urine pH 7.0 (5-7) 11/16/24 21:34 Ur Specific [place] 1.017 (1.005-1.030) 11/16/24:34 Urine Protein Negative (Negative) 11/16/24: Urine Glucose (UA) Negative (Normal) 11/16/24 21: Urine Ketones Negative (Negative) 11/16/24 21:34 Urine Blood Negative (Negative) 11/16/24 21:34 Urine Nitrate Negative (Negative) 11/16/24 21:34 Urine Bilirubin Negative (Negative) 11/16/24 21:34 Urine Urobilinogen 1.0 mg/dL (Negative) 11/16/24 21:34 Ur Leukocyte Esterase Negative (Negative) 11/16/24: Amorphous Sediment Not Reportable 11/16/24:34 All radiology interpretation(s) finalized by discharge Discharge Plan Discharge Patient Disposition: Home Clinical Impression: Dizziness Condition: Stable Prescriptions: Continued meclizine 25 mg tablet 25 mg PO QID PRN (Reason: dizziness) Qty: 20 0RF No Action lorazepam [Ativan] 1 mg tablet 1 mg PO BID PRN (Reason: dizziness or vertigo) Qty: 20 0RF Rx Instructions: Use only if vertigo is severe. No driving with this medication hydrochlorothiazide 12.5 mg tablet 12.5 mg PO DAILY cetirizine [Zyrtec] 10 mg tablet 10 mg PO DAILY PRN (Reason: allergies) fluticasone propionate [Flonase Allergy Relief] 50 mcg/actuation spray,suspension 2 spray intranasal DAILY PRN (Reason: Allergic Symptoms) Rx Instructions: administer into each nostril Discharge Orders: Discharge ED (Routine); Ordered 11/17/24 Ordered By: Anshu Wheeler Referrals: Kaelyn Mota DO [Primary Care Provider, CARE TEAM ASSISTANT] Patient Instructions: Patient Portal & Aren Instructions Activity Restrictions/Additional Instructions: Follow-up with neurology. Please follow-up with your primary care provider. Follow-up with optometry. Return with any severe worsening of symptoms. Continue taking your Ativan and meclizine. Drink plenty of water. Care with position changes. 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 [employer] Documented by User: Kasi Allen DO 11/17/24 03:44 HPI - Headache 2 General: Chief Complaint: Headache Stated Complaint: Dizziness,drooling, headache,Stroke symptoms Time Seen by Provider: 11/16/24 21:22 Related Data Home Medications ?Medication ?Instructions ?Recorded ?Confirmed cetirizine 10 mg tablet (Zyrtec) 10 mg PO DAILY PRN al lergies 11/01/24 11/01/24 fluticasone propionate 50 2 spray intranasal DAILY PRN 11/01/24 11/01/24 mcg/actuation nasal Allergic Symptoms spray,suspension (Flonase Allergy Relief) hydrochlorothiazide 12.5 mg tablet 12.5 mg PO DAILY 11/01/24 Previous Rx's ?Medication ?Instructions ?Recorded lorazepam 1 mg tablet (Ativan) 1 mg PO BID PRN dizzine ss or 11/01/24 vertigo #20 tabs meclizine 25 mg tablet 25 mg PO QID PRN dizziness # 20 tabs 11/01/24 Allergies Allergy/AdvReac Type Severity Reaction Status Date / Time No Known Allergies Allergy Verified 11/16/24 20:42 PFSH ED 2 PFSH: Family History Denies family history of Ovarian cancer Diabetes Breast cancer Hypertension Uterine cancer Thyroid disease Stroke Social History Smoking and tobacco/nicotine status: current every day tobacco/nicotine user Course 2 Vital Signs: Vital signs: Vital Signs Temperature 97.7 F 11/16/24 20:39 Pulse Rate 73 11/17/24 00:48 Respiratory Rate 17 11/16/24 21:47 Blood Pressure 117/73 11/17/24 00:48 Pulse Oximetry 95 11/17/24 00:48 Oxygen Delivery Me thod Room Air 11/16/24 23:48 MDM - Headache Medical Decision Making Patient presented complaining of persistent lightheadedness and dizziness, had been seen here previously in the emergency department where she had head imaging performed showing no acute findings and was diagnosed with BPPV. States that this has not gotten better, she has no focal neurological deficit at this time as well and NIH of 0. Neurologically intact, CTA at this time does not show any stenosis or occlusion. EKG does not show any arrhythmias or cardiac explanation for dizziness. Lab work repeated and unremarkable, thyroid normal. She has remained stable here in the ED, she will be referred to neurology though I suspect that there is an element of incorrect eyeglass prescription that she is to follow-up with optometry for. Regardless she is stable for discharge and will continue her Ativan and meclizine. This patient was originally seen by Mr. Summer PA-C. I agree with his history, evaluation, and treatment. Lab Data 11/16/24 21:27 11/16/24 21:27 Radiology Impressions Head/Neck CTA 11/16/24 22:19 IMPRESSION: 1. No large vessel stenosis or occlusion. 2. No acute intracranial abnormality. No hemorrhage, mass effect or extra-axial collection. IMPRESSION: 1. No stenosis or occlusion. 2. No acute vascular abnormality. REFERENCES: NASCET CRITERIA. The degree of stenosis in the cervical segment of the internal carotid artery is based on NASCET criteria. Normal is no stenosis. Mild is less than 50% stenosis. Moderate is 50-69% stenosis. Severe is 70% to 99% stenosis. Total occlusion is no detectable patent lumen. Head CT 11/16/24 22:43 IMPRESSION: No acute intracranial abnormality. Laboratory Results WBC 10.88 10^3/uL (3.29-11.43) 11/16/24 21:27 RBC 4.74 10^6/uL (3.85-5.65) 11/16/24 21: Hgb 15.20 g/dL (11.27-16.99) 11/16/24: Hct 45.4 % (36-47) 11/16/24 21: MCV 95.8 fl (85-98) 11/16/24: MCH 32.1 pg (27-33) 11/16/24: MCHC 33.5 g/dL (30-55) 11/16/24: RDW 12.4 % (12.1-15.1) 11/16/24: Plt Count 255 10^3/cmm (157-399) 11/16/24: MPV 10.5 fL (7.4-10.4) H 11/16/24: Neut % (Auto) 66.2 % 11/16/24: Lymph % (Auto) 23.8 % 11/16/24: [place] % (Auto) 6.3 % 11/16/24: Eos % (Auto) 2.9 % 11/16/24: Baso % (Auto) 0.4 % 11/16/24: Neut # (Auto) 7.21 10^3/uL (1.8-7.7) 11/16/24: Lymph # (Auto) 2.6 10^3/uL (0.8-4.8) 11/16/24: [place] # (Auto) 0.7 10^3/uL (0.2-0.9) 11/16/24: Eos # (Auto) 0.3 10^3/uL (0.0-0.8) 11/16/24: Baso # (Auto) 0.0 10^3/uL (0.0-0.1) 11/16/24: Nucleated RBC % (auto) 0 % 11/16/24: Nucleated RBCs # 0.0 /100WBC 11/16/24: Sodium 141 mmol/L (136-145) 11/16/24: Potassium 3.6 mmol/L (3.5-5.1) 11/16/24 21: Chloride 103 mmol/L (98-107) 11/16/24 21: Carbon Dioxide 27 mmol/L (22-29) 11/16/24 21: Anion Gap 14.6 (5-19) 11/16/24 21: BUN 8 mg/dL (6-20) 11/16/24 21: Creatinine 0.5 mg/dL (0.5-0.9) 11/16/24: GFR Calculation 130.6 mL/min (90-130) H 11/16/24 21: Glucose 143 mg/dL (65-115) H 11/16/24 21: Calculated Osmolality 293 mOsm/kg (285-295) 11/16/24: Calcium 9.7 mg/dL (8.5-10.5) 11/16/24: Total Bilirubin 0.3 mg/dL (0.15-1.2) 11/16/24: AST 26 U/L (0-32) 11/16/24: ALT 39 U/L (0-33) H 11/16/24 21: Alkaline Phosphatase 71 U/L (35-105) 11/16/24 21: Total Protein 7.7 g/dL (6.6-8.7) 11/16/24: Albumin 4.1 g/dL (3.5-5.2) 11/16/24: Globulin 3.6 g/dL (1.3-4.6) 11/16/24: TSH 0.78 uIU/mL (0.27-4.20) 11/16/24 21: Urine Color Yellow (Yellow) 11/16/24: Urine Appearance Clear (CLEAR) 11/16/24: Urine pH 7.0 (5-7) 11/16/24: Ur Specific [place] 1.017 (1.005-1.030) 11/16/24: Urine Protein Negative (Negative) 11/16/24 21: Urine Glucose (UA) Negative (Normal) 11/16/24 21: Urine Ketones Negative (Negative) 11/16/24: Urine Blood Negative (Negative) 11/16/24: Urine Nitrate Negative (Negative) 11/16/24 21:34 Urine Bilirubin Negative (Negative) 11/16/24 21:34 Urine Urobilinogen 1.0 mg/dL (Negative) 11/16/24 21:34 Ur Leukocyte Esterase Negative (Negative) 11/16/24 21:34 Amorphous Sediment Not Reportable 11/16/24 21:34 Discharge Plan Discharge Patient Disposition: Home Clinical Impression: Dizziness Condition: Stable Prescriptions: Continued meclizine 25 mg tablet 25 mg PO QID PRN (Reason: dizziness) Qty: 20 0RF No Action lorazepam [Ativan] 1 mg tablet 1 mg PO BID PRN (Reason: dizziness or vertigo) Qty: 20 0RF Rx Instructions: Use only if vertigo is severe. No driving with this medication hydrochlorothiazide 12.5 mg tablet 12.5 mg PO DAILY cetirizine [Zyrtec] 10 mg tablet 10 mg PO DAILY PRN (Reason: allergies) fluticasone propionate [Flonase Allergy Relief] 50 mcg/actuation spray,suspension 2 spray intranasal DAILY PRN (Reason: Allergic Symptoms) Rx Instructions: administer into each nostril Discharge Orders: Discharge ED (Routine); Ordered 11/17/24 Ordered By: Anshu Wheeler Referrals: Kaelyn Mota DO [Primary Care Provider, CARE TEAM ASSISTANT] Patient Instructions: Patient Portal & Aren Instructions Activity Restrictions/Additional Instructions: Follow-up with neurology. Please follow-up with your primary care provider. Follow-up with optometry. Return with any severe worsening of symptoms. Continue taking your Ativan and meclizine. Drink plenty of water. Care with position changes. 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 Lisa Louis
[2024-11-17 00:48] VITALS: BP 117/73; PULSE 73; O2SAT 95
--- NOTE | 2024-11-20 15:49 | PC.NURSE ---
Neurology referral sent.
== END 2024-11-17 00:30 | disposition home or self-care (01) ==
PROVIDERS: Emergency Medicine; Emergency Provider Physician Assistant; PCP Family Medicine
DX: R42 Dizziness and giddiness (principal); Z72.0 Tobacco use
CPT/HCPCS: 36415; 70450; 70496; 70498; 80053; 81003; 84443; 85025; 93005; 99285